=== PATIENT | female | born 1945 | race Caucasian/White ===

== ENCOUNTER 2022-09-21 10:02 | Outpatient (CLI) | payer MEDICARE, OTHER, SELFPAY | END 2022-09-21 10:03 | disposition home or self-care (01) | LOC: RAD 10:03 | PROVIDERS: PCP Family Medicine; Visit Provider Internal Medicine Cardiovascular Disease | DX: I48.91 Unspecified atrial fibrillation (principal); I51.7 Cardiomegaly; I34.0 Nonrheumatic mitral (valve) insufficiency; I07.1 Rheumatic tricuspid insufficiency | CPT/HCPCS: 93306 ==

== ENCOUNTER 2022-10-19 14:00 | Outpatient (RCR) | payer MEDICARE, OTHER, SELFPAY ==
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
== END 2023-04-25 23:59 | disposition home or self-care (01) ==
PROVIDERS: PCP Family Medicine; Visit Provider Physician Assistant Surgical
DX: S62.309D Unspecified fracture of unspecified metacarpal bone, subsequent encounter for fracture with routine healing (principal); Z51.89 Encounter for other specified aftercare
CPT/HCPCS: 97110; 97140; 97165; 97535; X5282

== ENCOUNTER 2023-10-31 14:30 | Outpatient (RCR) | payer MEDICARE, OTHER, SELFPAY | END 2024-02-17 09:56 | disposition home or self-care (01) | PROVIDERS: PCP Family Medicine; Visit Provider Family Medicine | DX: M53.3 Sacrococcygeal disorders, not elsewhere classified (principal); W19.XXXA Unspecified fall, initial encounter; R10.2 Pelvic and perineal pain; N39.46 Mixed incontinence; Z51.89 Encounter for other specified aftercare | CPT/HCPCS: 97110; 97112; 97162; 97535 ==

== ENCOUNTER 2024-11-04 21:41 | Emergency (ER) | payer MEDICARE, BC, SELFPAY ==
--- OUTSIDE RECORDS SUMMARY | 2024-11-04 21:44 | XMS_ITS | Encounter Summary ---
Author Organization [facility] Address [address] [place] [address] Care Team Providers Care Feedlot Manager Name Role Phone Unavailable Primary Care Provider Unavailabl e Encounter Details Date Type Department Care Team (Late st Contact Info) Description 09/24/2024 Documentation Department of Cardiovascular Surgery in [place], [place] [address] [place] [address] Jefferson Bowles M.D. [address] [place] [address] Social History Tobacco Use Types Packs/Day Years Used Date Smoking Tobacco: Former Cigarettes Smokeless Tobacco: Never Alcohol Use Standard Drinks/Week Comments Not Currently 0 (1 standard drink = 0.6 oz pure alcohol) previous drank red wine daily Dental Answer Date Recorded Dental: Regular Dentist Unknown 09/18/20 24 Comments Unknown Sex and Gender Information Value Date Recorded Sex Assigned at Not on file Legal Sex Female 1:40 PM BANK CLERK Gender Identity Not on file Sexual Orientation Not on file documented as of this encounter Progress Notes * Jefferson Bowles M.D. - 09/24/2024 6:28 PM CST Chart reviewed. Patient not seen. 79-year-old female with moderate to severe aortic insufficiency, moderate mitral regurgitation severe tricuspid regurgitation by surface echocardiogram. However by ANTONIO the aortic regurgitation is moderate. Tricuspid regurgitation is [id number]. The mitral valve disease is mild. The left ventricular ejection fraction is 50-55%. The left ventricular is not dilated. Apparently she has NYHA functional class 1 symptoms. In summary, Mrs. Banks has undetermined degree of valvular heart disease with minimal symptoms.She needs to be seen in the valve Clinic with a [place] echocardiogram. CLERK documented in this encounter Plan of Treatment Not on file documented as of this encounter Visit Diagnoses Not on filedocumented in this encounter
--- OUTSIDE RECORDS SUMMARY | 2024-11-04 21:44 | XMS_ITS | Encounter Summary ---
Author Organization [facility] Address [address] [place] [address] Care Team Providers Care Human Resource Intern Name Role Phone Unavailable Primary Care Provider Unavailabl e Encounter Details Date Type Department Care Team (Latest Contact Info) Description 09/22/2024 Clinical Communication Department of Cardiovascular Surgery in [place], [place] [address] [place] [address] Jefferson Bowles M.D. [address] [place] [address] Social History Tobacco Use Types Packs/Day Years [...] on file Legal Sex Female 1:40 PM PHONE ENGINEER Gender Identity Not on file Sexual Orientation Not on file documented as of this encounter Miscellaneous Notes * Telephone Encounter - Iesha Hobson - 09/22/2024 4:04 PM CST Jewel afternoon Dr. Bowles, The Patients images have been received and are available in Qreads. Please review at your earliest convenience. Thanks again! E ENGINEER documented in this encounter Plan of Treatment Not on file documented as of this encounter Visit Diagnoses Not on filedocumented in this encounter
--- OUTSIDE RECORDS SUMMARY | 2024-11-04 21:44 | XMS_ITS | Referral Summary ---
Author Organization [facility] Address [address] [place] [address]. 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 Immunizations Name Administration Dates Next Due Influenza (IIV3) PF 09/17/2008 Pneumo Conj 13-V (2010&after) 11/24/2018 Pneumococcal 23 valent 06/14/2011 TD,PF 7+ (Tenivac) 06/13/2004 Tdap (Adult) Unspecified Formulation 07/01/2012 Zoster vaccine, live 06/12/2011 Social History Tobacco Use Types Packs/Day Years Used Date Smoking Tobacco: Former Smokeless Tobacco: Never Tobacco Cessation:Counseling Given: Yes Alcohol Use Standard Drinks/Week Comments Yes 0 (1 standard drink = 0.6 oz pur e alcohol) 2 glasses of wine a week Adolescent Education Answer Date Record ed Getting School Help Needed Not on file 06/30 Comments No Sex and Gender Information Value Date Recorded Sex Assigned at Not on file Legal Sex Female 3:56 AM ELECTRICAL ACCESSORIES I ASSEMBLER Gender Identity Not on file Sexual Orientation Not on file Last Filed Vital Signs Vital Sign Reading Time Taken Comments Blood Pressure 107/68 06/01/2022 11:44 AM CDT Pulse 98 06/01/2022 11:44 AM CDT Temperature 36.4 C (97.6 F) 06/02/2019 11:42 AM CDT Respiratory Rate 16 06/02/2019 11:42 AM CDT Oxygen Saturation 99% 06/02/2019 11:42 AM CDT Inhaled Oxygen Concentration - - Weight 56.4 kg (124 lb 4.8 oz) 06/01/2022 11:44 AM CDT Height 171.5 cm (5' 7.5) 06/02/2019 11:42 AM CD T Body Mass Index 19.18 06/02/2019 11:42 AM CDT Plan of Treatment Not on file Procedures Procedure Name Priority Date/Time Associated Diagnosis Comments THYROID STIMULATING IMMUNOGLOBULIN Routine 05/26/2019 1:01 PM CDT 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 from Last 3 Months or Most Recently Relevant to Health Maintenance Results * Thyroid stimulating immunoglobulin (05/26/2019 1:01 PM CDT) Thyroid Stim Immunog <1.0 <=1.3 TSI index 06/03/2019 3:35 PM CDT [facility] Comment: (Note) Test Performed by: [facility] - [address] [address] Blood specimen (specimen) 05/26/2019 1:01 PM CDT 05/26/2019 1:02 PM CDT Cierra Bhandari MD LAB - BLOOD ORDERABLES Fi nal Result [facility] [address] [facility] [address] [place] [address] from Last 3 Months or Most Recently Relevant to Health Maintenance Insurance [facility] MEDICARE Care Teams Florist Relationship Specialty Start Date End Date No Ref-Primary, Physician PCP - General 08/24/19
--- OUTSIDE RECORDS SUMMARY | 2024-11-04 21:44 | XMS_ITS | Continuity of Care Document ---
Author Organization [facility] Address [address] [place] [address] Assessment Encounter Date Assessment Date Assessment LastModified by Organization Details LastModified Time 10/08/2024 10/08/2024 ASSESSMENT: Patient is a good candidate for conservative care and the prognosis is for a favorable outcome that achieves the patients' goals. We discussed etiology, activity modifications, home care, and other treatment options. Initially, it is recommended that the patient receive in-office treatment 1 times per week for 8 weeks at which time a re-evaluation will be performed to determine an appropriate change in plan. Initially, treatment will focus on joint manipulation to restore range of motion and reduce pain. We will slowly progress to therapeutic exercises and activities to improve function, strength, and stability may also be used as warranted. If the patient is not responding as expected, more invasive procedures will be discussed along with a referral. All considerations above were discussed with the patient and questions answered to satisfaction. If the patient should have any additional questions, or should the condition evolve or worsen, the patient should not hesitate to contact our office. [email or web address] Not available 10/08/2024 20:03:24 Plan of Treatment Reminders Order Date Submit Date Provider Last Modified By Organization Details Last Modified Time Details Appointments None record ed. Lab None record ed. Referral None record ed. Procedures None record ed. Surgeries None record ed. Imaging None record ed. Medication Orders None record ed. Patient TargetsNo targets recorded. Patient InstructionsNo instructions recorded. Reason for Referral None Reported. Problems Name Problem SNOMED Code Status Onset Date Resolution Date Notes Provider Name and Address Organization Details Recorded Time Lumbar segmental dysfunction 994503199 Active 2024 Musa Alvarez DC [address] [facility], [place], [address] , [facility] 5 20:03:24 Neck pain 62489651 Active 2024 Not Available [facility] 5 11:22:13 Thoracic segmental dysfunction 392076839 Active 2024 Musa Alvarez DC [address], [place], [address] , [facility] 5 20:03:24 Lesion of lumbar spine 934768761 Active 2024 Musa Alvarez DC [address] [facility], [place], [address] , [facility] 5 20:03:24 Cervical segmental dysfunction 888260809 Active 2024 Musa Alvarez DC [address], [place], [address] , [facility] 5 20:03:25 Problem Notes None recorded. Procedures Surgical History Date Name Laterality Status Provider Name and Address Organization Details Recorded Time 5 64452: Spinal manipulation , 3 to 4 regions completed Musa Alvarez DC [address], [place], [address], [facility] 10/14/2024 09:14:26 5 84297: New patient E/M completed Musa Alvarez DC [address] [facility] [address], [place], [address], [facility] 10/14/2024 09:14:26 5 19831: Spinal manipulation , 3 to 4 regions completed Musa Alvarez DC [address] [facility], [place], [address], [facility] 10/08/2024 20:03:32 5 89227: New patient E/M completed Musa Alvarez DC [address], [place], [address], [facility] 10/08/2024 20:03:40 Imaging Results None recorded. Procedure Notes None recorded. Medical Equipment None Reported. Medications Name Sig Start Date Stop Date Status Note LastModified by Organization Details LastModified Time cephalexin 500 mg capsule active Not Available Not Available N ot Available levofloxacin 500 mg tablet active Not Available Not Availabl e Not Available Vitals None Recorded Social History None recorded. Functional Status None recorded. Mental Status None recorded. Family History Nothing Reported. Medical History No medical history recorded. Gynecological HistoryNo gynecological history recorded. Obstetrics History GPAL:G 0 P 0 0 0 0 Past Encounters Encounter ID Performer Location Encounter Start Date Encounter Closed Date Diagnosis/Indication Diagnosis SNOMED-CT Code Diagnosis ICD10 Code Diagnosis Note [id number] Musa Alvarez DC [facility] [address] [place] [address] 10/08/2024 19:52:59 10/13/2024 11:20:32 Lesion of lumbar spine 934627028 M99.01 Neck pain 91816330 M54.2 Thoracic s egmental dysfunction 880865752 M99.02 Lumbar seg mental dysfunction 220025364 M99.03 Cervical s egmental dysfunction 941213815 M99.01 Health Concerns Section Related Observation LastModified by Organization Detai ls LastModified Time None Recorded Concern Status LastModified by Organization Details LastModified Time None Recorded Payers Encounter Date Sequence Insurance Name Policy Number Policy Velasquez Covered Member ID Velasquez Member ID Guarantor Name 10/08/2024 1 *SELF PAY* Karine Banks Notes Date Note Type Note Provider Name and Address Organization Details Recorded Time 10/08/2024 text/html HPI - Cervical SpineReported bypatient.Location: left Quality:aching Severity:moderate Duration:2 weeks Timing:gradual Alleviating Factors:ice Aggravating Factors:sitting Associated Symptoms:no numbness/tingling Musa Alvarez DC [address], [place], [address], [facility] 11/02/2024 10:32:59 10/12/2024 text/html HPI - Cervical SpineReported bypatient.Location: left Quality:aching Severity:moderate Duration:2 weeks Timing:gradual Alleviating Factors:ice Aggravating Factors:sitting Associated Symptoms:no numbness/tingling Musa Alvarez DC [address], [place], [address], [place] [facility] 10/14/2024 09:15:23 OBGyn Episode No OBEpisode recorded.
--- OUTSIDE RECORDS SUMMARY | 2024-11-04 21:44 | XMS_ITS | Encounter Summary ---
Author Organization [facility] Address [address] [place] [address] Care Team Providers Care Instrument And Control Technician Name Role Phone No Ref-Primary, Physician Primary Care Provider Ni Garcia MD Unavailable [phone] Encounter Details Date Type Department Care Team (Late st Contact Info) Description 03/26/[address] [place] [address] [place] [address] Social History Tobacco Use Types Packs/Day Years Used Date Smoking Tobacco: Former Smokeless Tobacco: Never Alcohol Use Standard Drinks/Week Comments Yes 0 (1 standard drink = 0.6 oz pur e alcohol) 2 glasses of wine a week Comments No Sex and Gender Information Value Date Recorded Sex Assigned at Not on file Legal Sex Female 3:56 AM CHIEF RADIOLOGY Gender Identity Not on file Sexual Orientation Not on file documented as of this encounter Plan of Treatment Not on file documented as of this encounter Visit Diagnoses Not on filedocumented in this encounter Care Teams Instrument And Control Technician Relationship Specialty Start Date End Date No Ref-Primary, Physician PCP - General 08/24/19 [place] [address] Assigned Endocrinology Provider 08/27/21 03/28/24 documented as of this encounter
--- OUTSIDE RECORDS SUMMARY | 2024-11-04 21:44 | XMS_ITS | Encounter Summary ---
Author Organization [facility] Address [address] [facility] [place] [address] Care Team Providers Care Administrative Hearing Officer Name Role Phone No Ref-Primary, Physician Primary Care Provider Ni Garcia MD Unavailable [phone] Reason for Visit * Reason Onset Date Comments Call Back 09/08/2021 Encounter Details Date Type Department Care Team (Late st Contact Info) Description 09/08/2021 Telephone [facility] Specialty [address] [place] [address] [place] [address] Call Back Social History Tobacco Use Types Packs/Day Years Used Date Smoking Tobacco: Former Smokeless Tobacco: Never Alcohol Use Standard Drinks/Week Comments Yes 0 (1 standard drink = 0.6 oz pur e alcohol) 2 glasses of wine a week Comments No Sex and Gender Information Value Date Recorded Sex Assigned at Not on file Legal Sex Female 3:56 AM TUNNEL INSPECTOR Gender Identity Not on file Sexual Orientation Not on file COVID-19 Exposure Response Date Recorded In the last month, have you been in contact with someone who was confirmed or suspected to have Coronavirus / COVID-19? Yes 08/25/2021 3:08 PM TUNNEL INSPECTOR documented as of this encounter Miscellaneous Notes * Telephone Encounter - Tamela Sawyer RN - 09/08/2021 3:45 PM TUNNEL INSPECTOR Do you have information that you received on this patient and information I can provide her with. EL INSPECTOR * Telephone Encounter - Vida Guzman - 09/08/2021 9:59 AM CST [facility] Call Center Phone Message May a detailed message be left on voicemail: yes Reason for Call: Other: . Per Patient states she had seen Dr. Garcia on 08/25/2021. Patient statesDr. Garcia wanted patient to provide her with the information on the supplements patient is taking. Patient states she did sent her the information via e-mail on 08/28/2021 or 08/29/2021 the following week after she was seen. Patient states she wanted Dr. Garcia to take a look at the test resultsfrom Dr. Lord and evaluate the results and to get back to patient. Patient states she has not heard anything from the clinic or Dr. Garcia and is wondering what is going on and if Dr. Garcia has received the information on the supplements and if Dr. Garcia has taken a look at patients test results from Dr. Lord. Patient would like a call back. Please advise. Patient is wanting to confirm the Email address of Dr. Garcia and wanting to make sure she has it correct. Patient is wanting to get a call back today, 09/08/2021 Action Taken: Message routed to: [facility] Endo Travel Screening: Not Applicable EL INSPECTOR EL INSPECTOR EL INSPECTOR documented in this encounter Plan of Treatment Not on file documented as of this encounter Visit Diagnoses Not on filedocumented in this encounter Care Teams Administrative Hearing Officer Relationship Specialty Start Date End Date No Ref-Primary, Physician PCP - General 08/24/19 [place] [address] Assigned Endocrinology Provider 08/27/21 03/28/24 documented as of this encounter
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
--- OUTSIDE RECORDS SUMMARY | 2024-11-04 21:44 | XMS_ITS | Encounter Summary ---
Author Organization [facility] Address [address] [facility] [place] [address] Care Team Providers Care School Psychologist Assistant Name Role Phone No Ref-Primary, Physician Primary Care Provider Ni Garcia MD Unavailable [phone] Reason for Visit * Reason Onset Date Comments Call Back 06/25/2022 Encounter Details Date Type Department Care Team (Late st Contact Info) Description 06/25/2022 [facility] Specialty [address] [place] [address] [place] [address] Call Back Social History Tobacco Use Types Packs/Day Years Used Date Smoking Tobacco: Former Smokeless Tobacco: Never Alcohol Use Standard Drinks/Week Comments Yes 0 (1 standard drink = 0.6 oz pur e alcohol) 2 glasses of wine a week Comments No Sex and Gender Information Value Date Recorded Sex Assigned at Not on file Legal Sex Female 3:56 AM TYRE FITTER Gender Identity Not on file Sexual Orientation Not on file COVID-19 Exposure Response Date Recorded In the last 10 days, have yo u been in contact with someone who was confirmed or suspected to have Coronavirus/COVID-19? No / Unsure 06/01/2022 11:34 AM CDT documented as of this encounter Miscellaneous Notes * Telephone Encounter - Karthik Barney - 06/25/2022 11:23 AM CDT [facility] Call Center Phone Message May a detailed message be left on voicemail: yes Reason for Call: Other: Pt stated she will be taking the lab test on Saturday and stated she has been feeling tired and thinks maybe it might have to do with her thyroid. Per pt as last discussed stated she is only doing it early because she does not feel well. Pt hoping for a call back results come through. Thank you Action Taken: Message routed to: Other: endo Travel Screening: Not Applicable documented in this encounter Plan of Treatment Not on file documented as of this encounter Visit Diagnoses Not on filedocumented in this encounter Care Teams School Psychologist Assistant Relationship Specialty Start Date End Date No Ref-Primary, Physician PCP - General 08/24/19 Ni Garcia [place] [address] Assigned Endocrinology Provider 08/27/21 03/28/24 documented as of this encounter
--- OUTSIDE RECORDS SUMMARY | 2024-11-04 21:44 | XMS_ITS | Clinical Summary ---
Author Organization [facility] Address [address] , [address] [place] [address] Phone Care Team Providers Care Lead Ramp Service Man Name Role Phone Manjeet LOVE, Ancelmo Monique [phone] Conditions or Problems Problem Name Problem Code Onset Date Status Entry Date Provider Comment Standard Description Annotate Visual field defect 83321544 (SNOMED CT) Active Ancelmo Burroughs MD Visual field defect Medications Medication Instructions Start Date Stop Date Generic Name NDC Provider LEVOTHYROXINE SODIUM 100 MCG TABS levothyroxine [id number] Ancelmo Burroughs MD TIROSINT 100 MCG CAPS levothyroxine [id number] Ancelmo Burroughs MD Medications Administered No information available. Allergies, Adverse Reactions, Alerts No information available. Results Date Name Value Unit Range Flag Description Lab Report: 06/27/21 - 2 ABSOLUTE MON 0.7 10*3/uL Monocyte s [#/volume] in Blood FRT4 1.51 FREE T4 ABS EOS 0.3 {Cells}/u L Eosinophils [#/volume] in Blood ABSOLUTE BAS completed 10*3/uL Basoph ils [#/volume] in Blood ABS LYMPHOCY 1.9 10*3/uL Absolute Lymphocytes ABS NEUTROPH 3.5 10*3/uL Neutroph ils [#/volume] in Blood T3 TOTAL 61 ng/mL Triiodothyro nine (T3) [Mass/volume] in Serum or Plasma % BASO AUTO 1.1 % basophils as percent of blood leukocytes, automated count % EOS AUTO 4.4 % Eosinophil s/100 leukocytes in Blood by Automated count MPV 8.4 fL Platelet mean volume [Entitic volume] in Blood by [facility] IRON SATUR % 28 % Iron sat uration [Mass Fraction] in Serum or Plasma MONOCYTE % 11.2 % Monocytes/ 100 leukocytes in Blood by Automated count TIBC 356 ug/dL Iron binding capacity [Mass/volume] in Serum or Plasma MCH 29.8 pg MCH [Entitic mass] by Automated count RDW 13.6 % Erythrocyte distribution width [Ratio] by Automated count MCHC 32.5 % MCHC [Mass/vo lume] by Automated count PMN % 53.9 % Neutrophils/1 00 leukocytes in Blood by Automated count MCV 91 fL MCV [Entitic volume] by Automated count IRON 98 ug/dL Iron [Mass/vo lume] in Serum or Plasma WBC 6.4 10*3/mm3 Leukocytes [#/volume] in Blood by Automated count RBC 3.96 10*6/mm3 Erythrocytes [#/volume] in Blood by Automated count PLATELETS 318 10*3/mm3 Platelets [#/volume] in Blood by Automated count HGB 12.0 g/dL Hemoglobin [Mass/volume] in Blood HCT 36.3 % Hematocrit [V olume Fraction] of Blood by Automated count TSH 4.59 u[iU]/mL Thyrotropin [Units/volume] in Serum or Plasma FERRITIN 16.0 ng/mL Ferritin [Mass/volume] in Serum or Plasma BG RANDOM mg/dL Glucose [Mass/volume] in Blood B-12 866 pg/mL Cobalamin (Vi tamin B12) [Mass/volume] in Serum or Plasma Office Visit: Office Visit H omonymous hemianopia, MRI Heart [facility] 01/2022 MEDS REVIEW Done Documenta tion of current medications (procedure) SMOK STATUS former smoker Tob acco smoking status Internal Other: Verbal Autho rization/Emergency Contact - OBS VERBAL_EMER DONE Verbal au thorization and emergency contact Internal Other: Authorizatio n - OBS [email or web address] Yes Authoriza tion: Release of Information - Authorize [facility] - Payment and Healthcare Operations ROIAUTHOTHER Yes Authoriz ation: Release of Information - Authorize Others/Insurance - Payment and Healthcare Operations HIECONSENT Yes Consent To Release information to the Health Information Exchange (HIE) [email or web address] Yes Authorizat ion: Authorization for [facility] to leave messages, voicemail, send text messages, send emails AUTHRELHCARE Yes Authoriz ation: Release/Retrieval of Information to/from Healthcare Facilities, Pharmacy Benefit Payers and Providers AUTHPRIVPRAC Yes Authoriz ation: Notice of privacy practices AUTHBENEFIT Yes Authoriza tion: Assignment of Benefits and Payment Agreement Plan of Care Type Date Detail Pending order Visual Evoked Po tentials Pending order Other Referral Pending order We will contact you with test results Pending order Obtain outside r ecords Procedures Code Procedure Name Date Entry Date ORDERS Visual Evoked Potentials 11/11/25 [id number] VISUAL EVOKED POTENTIAL (END) ORDERS We will contact you with test results 11/11/23 [facility]-[id number] Documentation of current medicatio ns Vital Signs Date Name Value Unit Description BMI (Body Mass Index) 21.54 kg/m2 Bod y Mass Index (Ratio) Height 67.24 [in_us] height E&M Weight Measured 62.73 kg weight in kilograms E&M Weight Measured 138 [lb_av] weight E& M BP Diastolic 68 mm[Hg] blood pressu re, diastolic BP Systolic 105 mm[Hg] blood pressur e, systolic Heart Rate 109 /min pulse rate Respiratory Rate 20 /min respirat ory rate E&M Immunizations No information available. Advance Directives No information available.
--- OUTSIDE RECORDS SUMMARY | 2024-11-04 21:44 | XMS_ITS | Clinical Summary ---
Author Organization [facility] Address [address] [place] [address]. [place] [address] Care Team Providers Care Physical Education Aide Name Role Phone No Ref-Primary, Physician Primary [...] on file Legal Sex Female 3:56 AM QUALITY IMPROVEMENT COORDINATOR Gender Identity Not on file Sexual Orientation [...] 06/02/2019 11:42 AM CDT Plan of Treatment Health Maintenance Due Date Last Done Comments ADVANCE CARE PLANNING 1945 ANNUAL REVIEW OF HM ORDERS 1945 DEXA 1945 FALL RISK ASSESSMENT 01/15/2008 RSV VACCINE (1 - 1-dose 75+ series) 2018 TSH W/FREE T4 REFLEX 05/26/2020 05/26/2019, 05/26/2019, 05/26/2019, Additional history exists MEDICARE ANNUAL WELLNESS VISIT 05/29/2022 05/29/2021 COVID-19 Vaccine ( season) 2024 06/14/2022, 01/11/2022, 07/02/2021, Additional history exists INFLUENZA VACCINE (#1) 2024 09/17/2008 PHQ-2 (once per calendar year) 2024 DTAP/TDAP/TD IMMUNIZATION (3 - Td or Tdap) 06/10/2030 06/10/2020, 07/01/2012, 07/01/2012, Additional history exists Pneumococcal Vaccine: 50+ Years Completed 11/24/2018, 06/14/2011 ZOSTER IMMUNIZATION Completed 02/19/2019, 12/06/2018, 06/12/2011 HPV IMMUNIZATION Aged Out No longer e ligible based on patient's age to complete this topic MENINGITIS IMMUNIZATION Aged Out No l onger eligible based on patient's age to complete this topic RSV MONOCLONAL ANTIBODY Aged Out No l onger eligible based on patient's age to complete this topic Procedures Procedure Name Priority Date/Time Associated Diagnosis Comments THYROID STIMULATING IMMUNOGLOBULIN Routine 05/26/2019 1:01 PM CDT 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 from Last 3 Months or Most Recently Relevant to Health Maintenance Results * Thyroid stimulating immunoglobulin (05/26/2019 1:01 PM CDT) Thyroid Stim Immunog <1.0 <=1.3 TSI index 06/03/2019 3:35 PM CDT [facility] Comment: (Note) Test Performed by: [address] [address] Blood specimen (specimen) 05/26/2019 1:01 PM CDT 05/26/2019 1:02 PM CDT Cierra Bhandari MD LAB - BLOOD ORDERABLES Fi nal Result [facility] [address] [facility] [place] [address] from Last 3 Months or Most Recently Relevant to Health Maintenance Insurance [employer] Care Teams Physical Education Aide Relationship Specialty Start Date End Date No Ref-Primary, Physician PCP - General 08/24/19
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
--- OUTSIDE RECORDS SUMMARY | 2024-11-04 21:45 | XMS_ITS | Encounter Summary ---
Author Organization [facility] Address [address] [place] [address] Care Team Providers Care Crew Caller Name Role Phone Elsewhere, Pcp Primary Care Provider Unavailabl e Reason for Visit * Reason Onset Date Comments Pre-visit Intake 10/29/2024 * Appointment Request (Routine) - Authorized Specialty Diagnoses / Procedures Referred By Jesse alexander Referred To Contact Cardiovascular Disease Zi Doty M.D. [address] [place] [address] Phone: tel: fax: Referral ID Status Reason Start Date Expiration Date V isits Requested Visits Authorized [id number] Authorized 10/01/2024 10/01/2025 1 1 Encounter Details Date Type Department Care Team (Latest Contact Info) Description 10/29/2024 12:15 PM LICENSED MENTAL HEALTH COUNSELOR Clinical Communication Virtual Review in [place], [place] [address] [place] [phone] Pre-visit Intake Social History Tobacco Use Types Packs/Day Years [...] on file Legal Sex Female 1:40 PM LICENSED MENTAL HEALTH COUNSELOR Gender Identity Not on file Sexual Orientation Not on file documented as of this encounter Plan of Treatment Not on file documented as of this encounter Visit Diagnoses Not on filedocumented in this encounter Care Teams Crew Caller Relationship Specialty Start Date End Date Elsewhere, Pcp PCP - General Internal Medicine 10/29/24 documented as of this encounter
--- OUTSIDE RECORDS SUMMARY | 2024-11-04 21:45 | XMS_ITS | Encounter Summary ---
Author Organization [facility] Address [address] [place] [address] Care Team Providers Care Abrading Machine Tender Name Role Phone Unavailable Primary Care Provider Unavailabl e Reason for Visit * Reason Onset Date Comments Referral Triage 09/28/2024 CVD Encounter Details Date Type Department Care Team (Latest Contact Info) Description 09/28/2024 Referral Triage Department of Cardiovascular Medicine in [place], [place] [address] [place] [address] Project ExecutiveReinaldo M.D. Referral Triage (CVD) Social History Tobacco Use Types Packs/Day Years [...] on file Legal Sex Female 1:40 PM SECTION BEAMER Gender Identity Not on file Sexual Orientation Not on file documented as of this encounter Plan of Treatment Not on file documented as of this encounter Visit Diagnoses Not on filedocumented in this encounter
--- OUTSIDE RECORDS SUMMARY | 2024-11-04 21:45 | XMS_ITS | Data Portability ---
Author Organization [place] [facility], [employer] [facility] Address [address] [place] [address] Assessment Encounter Date Assessment Date Assessment LastModified [...] should not hesitate to contact our office. Not available 10/08/2024 20:03:24 10/12/2024 10/12/2024 ASSESSMENT: Patient is a good candidate for [...] should not hesitate to contact our office. 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 Procedures Surgical History Date Name Laterality Status Provider Name and Address Organization Details Recorded Time 5 65971: Spinal manipulation , 3 to 4 regions completed [facility] Angel Alvarez [address], [place], [address], [facility] 10/14/2024 09:14:26 5 [address]305: New patient E/M completed Musa Alvarez [place] [address], [place], [address], [facility] 10/14/2024 09:14:26 5 08755: Spinal manipulation , 3 to 4 regions completed Musa Alvarez YANDEL [address] [place] [address], [place], [address], [facility] 10/08/2024 20:03:32 5 52492: New patient E/M completed Musa Alvarez [place] [address], [place], [address], [facility] 10/08/2024 20:03:40 Imaging Results None recorded. Procedure [...] SNOMED-CT Code Diagnosis ICD10 Code Diagnosis Note [id number] Musa Angel Alvarez DC [facility] [address] [place] [address] 10/08/2024 19:52:59 10/13/2024 11:20:32 Lesion of lumbar spine 648448005 M99.01 Neck pain 05838323 M54.2 Thoracic s egmental dysfunction 744461685 M99.02 Lumbar seg mental dysfunction 319461464 M99.03 Cervical s egmental dysfunction 818269172 M99.01 [id number] Musa Angel Alvarez DC [facility] [address] [place] [address] 10/12/2024 16:17:59 10/13/2024 11:21:02 Lesion of lumbar spine 998969676 M99.01 Neck pain 72395183 M54.2 Thoracic s egmental dysfunction 838023328 M99.02 Lumbar seg mental dysfunction 474770813 M99.03 Cervical s egmental dysfunction 851650400 M99.01 Health Concerns Section Related Observation LastModified by Organization Detai ls LastModified Time None Recorded Concern Status LastModified by Organization Details LastModified Time None Recorded Advance Directives Directive None Recorded Payers Encounter Date Sequence Insurance Name Policy Number Policy Velasquez Covered Member ID Velasquez Member ID Guarantor Name 10/08/2024 1 *SELF PAY* Kairne Banks 10/12/2024 2 [facility] [id number] Ariane Banks [id number] Ariane Banks Notes Date Note Type Note Provider Name and Address Organization Details Recorded Time 10/08/2024 text/html HPI - Cervical SpineReported bypatient.Location: left Quality:aching Severity:moderate Duration:2 weeks Timing:gradual Alleviating Factors:ice Aggravating Factors:sitting Associated Symptoms:no numbness/tingling Scot Angel Alvarez DC [address], [place], [address], [facility] 11/02/2024 10:32:59 10/12/2024 text/html HPI - Cervical SpineReported bypatient.Location: left Quality:aching Severity:moderate Duration:2 weeks Timing:gradual Alleviating Factors:ice Aggravating Factors:sitting Associated Symptoms:no numbness/tingling Scot Angel Alvarez DC [address], [place], [address], [facility] 10/14/2024 09:15:23 OBGyn Episode No OBEpisode recorded.
--- OUTSIDE RECORDS SUMMARY | 2024-11-04 21:45 | XMS_ITS | Encounter Summary ---
Author Organization [facility] Address [address] [place] [address] Care Team Providers Care Java Oracle Developer Name Role Phone Elsewhere, Pcp Primary Care Provider Unavailabl e Encounter Details Date Type Department Care Team (Latest Contact Info) Description 11/03/2024 Clinical Communication Department of Cardiovascular Medicine in [place], [place] [address] [place] [address] Geo Mcclain RCandidoN. 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 - 11/03/2024 11:14 AM MANAGER LATIN RN called pt on behalf of Dr Tomlin. Pt has not taken Eliquis since about 2019 when she took it a month surrounding cardioversion event. Says she is trying to mitigate stroke risk with lifestyle factors. RN educated patient on afib/stroke correlation and physiology of why her attempts to mitigate risk may not work in this situation. Pt understanding and eager to learn. Will relay to Dr Tomlin. GER LATIN documented in this encounter Plan of Treatment Not on file documented as of this encounter Visit Diagnoses Not on filedocumented in this encounter Care Teams Java Oracle Developer Relationship Specialty Start Date End Date Elsewhere, Pcp PCP - General Internal Medicine 10/29/24 documented as of this encounter
--- OUTSIDE RECORDS SUMMARY | 2024-11-04 21:45 | XMS_ITS | Encounter Summary ---
Author Organization [facility] Address [address] [place] [address] Care Team Providers Care Supervisor International Reservations Name Role Phone Elsewhere, Pcp Primary Care Provider Unavailabl e Reason for Visit * Reason Onset Date Comments Echo 11/0210/01/2024 Encounter Details Date Type Department Care Team (Latest Contact Info) Description 10/01/2024 Clinical Communication Department of Cardiovascular Medicine in [place], [place] [address] [place] [address] Zi Doty M.D. 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 (I.E. provider request, nursingrequest, etc.) Appt Type: NEW Saturday: Date: 11/02 Before 12:45 Evening? 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
--- OUTSIDE RECORDS SUMMARY | 2024-11-04 21:45 | XMS_ITS | Encounter Summary ---
Author Organization [facility] Address [address] [place] [id number] Care Team Providers Care Meter/Relay Technician Name Role Phone Elsewhere, Pcp Primary Care Provider Unavailabl e Reason for Referral * Specialty Diagnoses / Procedures Referred By Jesse alexander Referred To Contact Diagnoses Regurgitation Tricuspid Stenosis Mitral And Aortic [facility] Referral ID Status Reason Start Date Expiration Date Visits Re quested Visits Authorized O LAB SPECIALIST * Outpatient (Routine) - Closed Specialty Diagnoses / Procedures Referred By Contac t Referred To Contact Diagnoses Regurgitation Tricuspid Stenosis Mitral And Aortic Regurgitation Procedures ECG 12 Lead Osiel Tomlin M.D., M.P.H. [address] [place] [phone] Phone: tel: fax: [facility] Referral ID Status Reason Start Date Expiration Date Visits Re quested Visits Authorized [id number] Closed 10/01/2024 10/01/2025 1 1 O LAB SPECIALIST * Cardiovascular-Diagnostic (Routine) - Closed Specialty Diagnoses / Procedures Referred By Contac t Referred To Contact Diagnoses Regurgitation Tricuspid Stenosis Mitral And Aortic Regurgitation Procedures Echo Transthoracic (TTE) Osiel Tomlin M.D., M.P.H. [address] [place] [phone] Phone: tel: fax: [facility] Referral ID Status Reason Start Date Expiration Date Visits Re quested Visits Authorized [id number] Closed 10/01/2024 10/01/2025 1 1 O LAB SPECIALIST * Outpatient (Routine) - Closed Specialty Diagnoses / Procedures Referred By Jesse alexander Referred To Contact Diagnoses Regurgitation Tricuspid Stenosis Mitral And Aortic Regurgitation Procedures DX Chest AP or PA and Lateral 2 Views Osiel Tomlin M.D., M.P.H. [address] [place] [address] Phone: tel: fax: [facility] Referral ID Status Reason Start Date Expiration Date Visits Re quested Visits Authorized [id number] Closed 10/01/2024 10/01/2025 1 1 O LAB SPECIALIST Encounter Details Date Type Department Care Team (Latest Contact Info) Description 10/01/2024 Orders Only Department of Cardiovascular Medicine in [place], [place] [address] [place] [address] [facility], ProviderMD Regurgitation Tricuspid; Stenosis Mitral And Aortic Regurgitation Social History Tobacco Use Types Packs/Day Years Used Date Smoking Tobacco: Former Cigarettes Smokeless Tobacco: Never Alcohol Use Standard Drinks/Week Comments Not Currently 0 (1 standard drink = 0.6 oz pure alcohol) previous drank red wine daily Dental Answer Date Recorded Dental: Regular Dentist Unknown 09/18/20 Comments Unknown Sex and Gender Information Value Date Recorded Sex Assigned at Not on file Legal Sex Female 1:40 PM PHOTO LAB SPECIALIST Gender Identity Not on file Sexual Orientation Not on file documented as of this encounter Plan of Treatment Scheduled Orders Name Type Priority Associated Diagnoses Orde r Schedule Creatinine with Estimated GFR Lab Routine Regurgitation Tricuspid Stenosis Mitral And Aortic Regurgitation Expected: 10/01/2024, Expires: 12/30/2025 Scheduled Referrals Name Type Priority Associated Diagnoses Orde r Schedule Patient Education - Heart valve class education visit (clinic) Outpatient Referral Routine Regurgitation Tricuspid Stenosis Mitral And Aortic Regurgitation Expected: 10/01/2024, Expires: 12/30/2025 documented as of this encounter Results * (TTE) 2D ECHO DOPPLER COLOR (11/02/2024 11:44 AM PHOTO LAB SPECIALIST) Ejection Fraction 52 MC CV EIMS Mid-Ascending Aorta 42 MC CV EIMS LV Mass Index 78 MC CV EIMS LV End-Diastolic Diameter 44 MC CV EIMS LV End-Systolic Diameter 32 MC CV EIMS LV End-Diastolic Volume 100 MC CV EIMS LV End-Systolic Volume 48 MC CV EIMS MV E Velocity 0.7 MC CV EIMS Left ventricular stroke volume index 38 MC CV EIMS Cardiac Output 5.49 MC CV EIMS Cardiac Index 3.35 MC CV EIMS LV Interventricular Septal Wall Thickness 8 MC CV EIMS LV Posterior Wall Thickness 10 MC CV EIMS LV Relative Wall Thickness 45 MC CV EIMS RV 4-Chamber Basal Diameter 41 MC CV EIMS RV 4-Chamber Mid Diameter 29 MC CV EIMS RV 4-Chamber Length 60 MC CV EIMS TAPSE 18 MC CV EIMS Tricuspid Annular S 0.12 MC CV EIMS TR Vmax 2.17 MC CV EIMS RA Pressure 5 MC CV EIMS RV Systolic Pressure 24 MC CV EIMS AV mean gradient 5 MC CV EIMS Aortic valve area 2.15 MC CV EIMS Aortic Valve Dimensionless Index 0.62 MC CV EIMS AV regurgitant volume 49 MC CV EIMS MV regurgitant volume 16 MC CV EIMS LA Volume Index 38 MC CV EIMS Aortic Valve Systolic Peak Velocity 1.4 MC CV EIMS Anatomical Region Laterality Modality Echocardiography 11/02/2024 10:4 0 AM PHOTO LAB SPECIALIST Impressions 11/02/2024 12:46 PM PHOTO LAB SPECIALIST LEFT VENTRICLE:Normal left ventricular chamber size. Abnormal left ventricular geometry with concentric remodeling (increased wall thickness to cavity ratio). Calculated 2-D biplane volumetric left ventricular ejection fraction of 52%. Left ventricular stroke volume index 38 ml/m2. Left ventricular cardiac index 3.35 l/min/m2. No regional wall motion abnormalities. Indeterminate left ventricular filling pressure. RIGHT VENTRICLE:Normal right ventricular chamber size. Normal right ventricular systolic function. Estimated right ventricular systolic pressure 24 mmHg (right atrial pressure of 5 mmHg). ATRIA:Mild-moderately enlarged left atrial size. Left atrial volume index 38 ml/m2. Mild-moderately enlarged right atrial size. CARDIAC VALVES:Trileaflet aortic valve. Thickened aortic valve. Moderate aortic valve regurgitation. Aortic regurgitant volume (PISA) 49 ml. Aortic regurgitation ERO (PISA) 0.24 cm2. Thickened mitral valve. Mild mitral valve regurgitation. Pulmonary valve not well visualized. Normal pulmonary valve systolic velocities. Trivial pulmonary valve regurgitation. Normal tricuspid valve. Mild-moderate tricuspid valve regurgitation (multiple jets). OTHER ECHO FINDINGS:Normal inferior vena cava size with normal inspiratory collapse (>50%). Mildly enlarged mid ascending aorta diameter of 42 mm. Upper limit of normal of the mid ascending aorta, for age, sex and BSA is 39 mm. No abdominal aortic aneurysm. Normal abdominal aorta Doppler flow pattern. No atrial level shunt by color flow imaging. No intracardiac mass or thrombus, but the left atrial appendage cannot be visualized adequately with transthoracic echo to exclude thrombus in this location. No pericardial effusion. For the complete report, see the Order-Level Documents. Narrative 11/02/2024 12:46 PM PHOTO LAB SPECIALIST For the complete report, see the Order-Level Documents. Hemodynamics Heart Rate: 90 BPM Blood Pressure: 126 / 78 mmHg ECG: Atrial fibrillation with ectopics Final Impressions 1. Moderate aortic valve regurgitation, ERO (PISA) 0.24 cm2, regurgitant volume (PISA) 49 ml , vena contracta width 3 mm. 2. Mildly enlarged mid [...] inspiratory collapse (>50%). 9. No pericardial effusion. 10. In the absence of a change in clinical status, consensus guidelines recommend a repeat transthoracic echocardiogram in 1-2 years to reevaluate the aortic regurgitation. Procedure Note Rowan Ho M.D., Pharm.D. - 11/02/2024 For the complete report, see the Order-Level Documents. Hemodynamics Heart Rate: 90 BPM Blood Pressure: 126 / 78 mmHg ECG: Atrial fibrillation with ectopics Final Impressions 1. Moderate aortic valve regurgitation, ERO (PISA) 0.24 cm2, regurgitantvolume (PISA) 49 ml , vena contracta width 3 mm. 2. Mildly enlarged mid ascending aorta diameter of 42 mm, upper limit ofnormal for age, sex and BSA is 39 mm. 3. Normal left ventricular chamber size (end systolic diameter 3.2 cm), noregional wall motion abnormalities, calculated 2-D biplane volumetricejection fraction of 52%. 4. Abnormal left ventricular geometry with concentric remodeling(increased wall thickness to cavity ratio), indeterminate fillingpressure. 5. Mild mitral valve regurgitation. 6. Normal right ventricular chamber size, normal systolic function,estimated right ventricular systolic pressure 24 mmHg (right atrialpressure of 5 mmHg). 7. Mild-moderate tricuspid valve regurgitation (respiratory variation). 8. Normal inferior vena cava size with normal inspiratory collapse(>50%). 9. No pericardial effusion. 10. In the absence of a change in clinical status, consensus guidelinesrecommend a repeat transthoracic echocardiogram in 1-2 years to reevaluatethe aortic regurgitation. Findings LEFT VENTRICLE:Normal left ventricular chamber size. Abnormal leftventricular geometry with concentric remodeling (increased wall thicknessto cavity ratio). Calculated 2-D biplane volumetric left ventricularejection fraction of 52%. Left ventricular stroke volume index 38 ml/m2.Left ventricular cardiac index 3.35 l/min/m2. No regional wall motionabnormalities. Indeterminate left ventricular filling pressure. RIGHT VENTRICLE:Normal right ventricular chamber size. Normal rightventricular systolic function. Estimated right ventricular systolicpressure 24 mmHg (right atrial pressure of 5 mmHg). ATRIA:Mild-moderately enlarged left atrial size. Left atrial volume index38 ml/m2. Mild-moderately enlarged right atrial size. CARDIAC VALVES:Trileaflet aortic valve. Thickened aortic valve. Moderateaortic valve regurgitation. Aortic regurgitant volume (PISA) 49 ml. Aorticregurgitation ERO (PISA) 0.24 cm2. Thickened mitral valve. Mild mitralvalve regurgitation. Pulmonary valve not well visualized. Normal pulmonaryvalve systolic velocities. Trivial pulmonary valve regurgitation. Normaltricuspid valve. Mild-moderate tricuspid valve regurgitation (multiplejets). OTHER ECHO FINDINGS:Normal inferior vena cava size with normal inspiratorycollapse (>50%). Mildly enlarged mid ascending aorta diameter of 42 mm.Upper limit of normal of the mid ascending aorta, for age, sex and BSA is39 mm. No abdominal aortic aneurysm. Normal abdominal aorta Doppler flowpattern. No atrial level shunt by color flow imaging. No intracardiac massor thrombus, but the left atrial appendage cannot be visualized adequatelywith transthoracic echo to exclude thrombus in this location. Nopericardial effusion. For the complete report, see the Order-Level Documents. Osiel Tomlin M.D., M.P.H. CV ECHO PROCEDURES Final Result * ECG 12 Lead (11/02/2024 8:52 AM PHOTO LAB SPECIALIST) Ventricular Rate ECG/Min 77 BPM MUSE QRSD Interval 84 ms MUSE QT Interval 396 ms MUSE QTC Interval 448 ms MUSE R Silvis 57 degrees MUSE T Wave Silvis 2 degrees MUSE 11/02/2024 8:52 AM PHOTO LAB SPECIALIST 11/02/2024 8:54 AM PHOTO LAB SPECIALIST Impressions MUSE - 11/02/2024 8:54 AM PHOTO LAB SPECIALIST Atrial fibrillation Low anterior forces Nonspecific ST and T wave abnormality No previous ECGs available Reviewed by NARGIS Clements Narrative Procedure Note Trenton Murphy Jr., M.D. - 11/02/2024 IMPRESSION: Atrial fibrillation Low anterior forces Nonspecific ST and T wave abnormality No previous ECGs available Reviewed by NARGIS Clements Osiel Tomlin M.D., M.P.H. ECG ORDERABLES Fi nal Result MUSE NA * DX Chest AP or PA and Lateral 2 Views (11/02/2024 8:26 AM PHOTO LAB SPECIALIST) Anatomical Region Laterality Modality Chest, Thoracic RST LOS, Tho racic ARZ LOS, Thoracic FLA LOS N/A Digital Radiography Impressions 11/02/2024 8:43 AM PHOTO LAB SPECIALIST Mild bibasilar atelectasis/scarring. Mild hyperinflation. Left nipple shadow. Mild focal eventration left hemidiaphragm. Cardiac silhouette at the upper limits of normal for size. Fat pad cardiac apex. Aortic calcification. Mild degenerative changes thoracic spine. Several osseous bodies about the right shoulder. Abdominal surgical clips. Narrative 11/02/2024 8:43 AM PHOTO LAB SPECIALIST EXAM: DX CHEST AP OR PA AND LATERAL 2 VIEWS Procedure Note Juan C Frausto M.D. - 11/02/2024 EXAM: DX CHEST AP OR PA AND LATERAL 2 VIEWS IMPRESSION: Mild bibasilar atelectasis/scarring. Mild hyperinflation. Left nippleshadow. Mild focal eventration left hemidiaphragm. Cardiac silhouette atthe upper limits of normal for size. Fat pad cardiac apex. Aorticcalcification. Mild degenerative changes thoracic spine. Several osseous bodies about the right shoulder.Abdominal surgical clips. Osiel Tomlin M.D., M.P.H. IMG DIAGNOSTIC SONU GING PROCEDURES Final Result * Prothrombin Time (PT) (11/02/2024 8:06 AM PHOTO LAB SPECIALIST) Pathologist [facility] Prothrombin Time, P 10.0 9.4 - 12.5 sec 11/02/2024 9:03 AM PHOTO LAB SPECIALIST DTL INR 0.9 0.9 - 1.1 11/02/2024 9:03 AM PHOTO LAB SPECIALIST DTL Comment: ----ADDITIONAL INFORMATION---- Standard intensity warfarin therapeutic range: 2.0 to 3.0 High intensity warfarin therapeutic range: 2.5 to 3.5 Blood (Blood, Venous) 11/02/2024 8:06 AM PHOTO LAB SPECIALIST 11/02/2024 8:33 AM PHOTO LAB SPECIALIST Osiel Tomlin M.D., M.P.H. LAB BLOOD ADD-ON F inal Result [facility] [address] [place] [address], [facility] DTL [facility] [address] [place] [address] * CBC with Differential, Blood (11/02/2024 8:06 AM PHOTO LAB SPECIALIST) Pathologist [facility] Hemoglobin 15.0 11.6 - 15.0 g/dL 11/02/2024 8:59 AM PHOTO LAB SPECIALIST DTL Hematocrit 43.1 35.5 - 44.9 % 11/02/2024 8:59 AM PHOTO LAB SPECIALIST DTL Erythrocytes 4.48 3.92 - 5.13 x10(12)/L 11/02/2024 8:59 AM PHOTO LAB SPECIALIST DTL MCV 96.2 78.2 - 97.9 fL 11/02/2024 8:59 AM PHOTO LAB SPECIALIST DTL RBC Distrib Width 13.2 12.2 - 16.1 % 11/02/2024 8:59 AM PHOTO LAB SPECIALIST DTL Platelet Count 291 157 - 371 x10(9)/L 11/02/2024 8:59 AM PHOTO LAB SPECIALIST DTL Leukocytes 5.9 3.4 - 9.6 x10(9)/L 11/02/2024 8:59 AM PHOTO LAB SPECIALIST DTL Neutrophils 2.61 1.56 - 6.45 x10(9)/L 11/02/2024 8:59 AM PHOTO LAB SPECIALIST [facility] Lymphocytes 2.40 0.95 - 3.07 x10(9)/L 11/02/2024 8:59 AM PHOTO LAB SPECIALIST DTL Monocytes 0.56 0.26 - 0.81 x10(9)/L 11/02/2024 8:59 AM PHOTO LAB SPECIALIST DTL Eosinophils 0.21 0.03 - 0.48 x10(9)/L 11/02/2024 8:59 AM PHOTO LAB SPECIALIST DTL Basophils 0.07 0.01 - 0.08 x10(9)/L 11/02/2024 8:59 AM PHOTO LAB SPECIALIST DTL Blood (Blood, Venous) 11/02/2024 8:06 AM PHOTO LAB SPECIALIST 11/02/2024 8:33 AM PHOTO LAB SPECIALIST us Osiel Tomlin M.D., M.P.H. LAB BLOOD ADD-ON F inal Result [facility] [address] [place] [address], [facility] DTL [facility] [address] [place] [address] DHPM [facility] [address] [place] [address] * (ABNORMAL) NT-Pro B-Type Natriuretic Peptide (BNP) (11/02/2024 8:06 AM PHOTO LAB SPECIALIST) Pathologist [facility] NT-Pro BNP 1118(H) <=540 pg/mL 11/02/2024 9:18 AM PHOTO LAB SPECIALIST DTL Comment: NT-proBNP values less than 300 pg/mL have a 99% negative predictive value for excluding acute congestive heart failure. A cutoff of 1200 pg/mL for patients with an eGFR<60 yields a diagnostic sensitivity and specificity of 89% and 72% for acute congestive heart failure. A diagnostic NT-proBNP cutoff of 1800 pg/mL has been suggested in adults over 75 years of age in the absence of renal failure. Blood (Blood, Venous) 11/02/2024 8:06 AM PHOTO LAB SPECIALIST 11/02/2024 8:53 AM PHOTO LAB SPECIALIST Osiel Tomlin M.D., M.P.H. LAB BLOOD ADD-ON F inal Result Performing Organization Address City/[facility]/ZIP Co de Phone Number [facility] [address] [place] [address], [facility] DTL [facility] [address] [place] [address] * Glucose, Fasting (11/02/2024 8:06 AM PHOTO LAB SPECIALIST) Pathologist [facility] Glucose, P 97 70 - 100 mg/dL 11/02/2024 9:09 AM PHOTO LAB SPECIALIST DTL Last Intake 13 hr 11/02/2024 8:53 AM PHOTO LAB SPECIALIST DTL Blood (Blood, Venous) 11/02/2024 8:06 AM PHOTO LAB SPECIALIST 11/02/2024 8:53 AM PHOTO LAB SPECIALIST Osiel Tomlin M.D., M.P.H. LAB BLOOD NON ADD- ON Final Result [facility] [address] [place] [address], [facility] DTL [facility] [address] [place] [address] * Albumin (11/02/2024 8:06 AM PHOTO LAB SPECIALIST) Albumin, S 4.3 3.5 - 5.0 g/dL 11/02/2024 9:18 AM PHOTO LAB SPECIALIST DTL Blood (Blood, Venous) 11/02/2024 8:06 AM PHOTO LAB SPECIALIST 11/02/2024 8:53 AM PHOTO LAB SPECIALIST Osiel Tomlin M.D., M.P.H. LAB BLOOD ADD-ON F inal Result [facility] [address] [place] [address], [facility] [address] [place] [address] * (ABNORMAL) Lipid Panel (11/02/2024 8:06 AM PHOTO LAB SPECIALIST) Triglycerides 64 mg/dL 11/02/2024 9:18 AM PHOTO LAB SPECIALIST DTL Comment: ----REFERENCE VALUE---- Normal: <150 mg/dL Borderline High: 150-199 mg/dL High: 200-499 mg/dL Very High: > or =500 mg/dL Cholesterol, Total 244(H) mg/dL 2024 9:18 AM PHOTO LAB SPECIALIST DTL Comment: ----REFERENCE VALUE---- Desirable: < 200 mg/dL Borderline High: 200 - 239 mg/dL High: > or = 240 mg/dL Cholesterol, LDL, Calculated 121 mg/dL 11/02/2024 9:18 AM PHOTO LAB SPECIALIST DTL Comment: ----REFERENCE VALUE---- Desirable: <100 mg/dL Above Desirable: 100-129 mg/dL Borderline High: 130-159 mg/dL High: 160-189 mg/dL Very High: >=190 mg/dL ----ADDITIONAL INFORMATION---- LDL cholesterol calculated using the Santana/NIH equation. Cholesterol, HDL, S 112 >=50 mg/dL 11/02/2024 9:18 AM PHOTO LAB SPECIALIST DTL Cholesterol, Non-HDL, Calculated 132 mg/dL 11/02/2024 9:18 AM PHOTO LAB SPECIALIST DTL Comment: ----REFERENCE VALUE---- Desirable: <130 mg/dL Above Desirable: 130-159 mg/dL Borderline High: 160-189 mg/dL High: 190-219 mg/dL Very High: > or =220 mg/dL Fasting (8 HR or more) Yes 11/02/2024 8:06 AM PHOTO LAB SPECIALIST DTL Blood (Blood, Venous) 11/02/2024 8:06 AM PHOTO LAB SPECIALIST 11/02/2024 8:53 AM PHOTO LAB SPECIALIST Osiel Tomlin M.D., M.P.H. LAB BLOOD ADD-ON F inal Result Performing Organization Address [facility] de Phone Number [facility] [address] [place] [address] * Sodium (11/02/2024 8:06 AM PHOTO LAB SPECIALIST) Sodium, S 139 135 - 145 mmol/L 11/02/2024 9:18 AM PHOTO LAB SPECIALIST DTL Blood (Blood, Venous) 11/02/2024 8:06 AM PHOTO LAB SPECIALIST 11/02/2024 8:53 AM PHOTO LAB SPECIALIST Osiel Tomlin M.D., M.P.H. LAB BLOOD ADD-ON F inal Result Performing Organization Address [facility] Co de Phone Number [facility] [address] [place] [address] * Potassium (11/02/2024 8:06 AM PHOTO LAB SPECIALIST) Potassium, S 3.7 3.6 - 5.2 mmol/L 11/02/2024 9:18 AM PHOTO LAB SPECIALIST DTL Blood (Blood, Venous) 11/02/2024 8:06 AM PHOTO LAB SPECIALIST 11/02/2024 8:53 AM PHOTO LAB SPECIALIST us Osiel Tomlin M.D., M.P.H. LAB BLOOD ADD-ON F inal Result [facility] [address] [place] [address], [place] DTL [facility] [address] [place] [address] documented in this encounter Visit Diagnoses Diagnosis Regurgitation Tricuspid Stenosis Mitral And Aortic Regurgitation Regurgitation Tricuspid Stenosis Mitral And Aortic Regurgitation Regurgitation Tricuspid Stenosis Mitral And Aortic Regurgitation documented in this encounter Care Teams Meter/Relay Technician Relationship Specialty Start Date End Date Elsewhere, Pcp PCP - General Internal Medicine 10/29/24 documented as of this encounter
--- OUTSIDE RECORDS SUMMARY | 2024-11-04 21:45 | XMS_ITS | Clinical Summary ---
Author Organization [facility] Address [address] [place] [address] Care Team Providers Care Overweaver Name Role Phone Unassigned, Provider Primary Care Provider Unava ilable Source Comments You are receiving this document as you are listed as the primary care provider,follow-up provider, or the patient has been referred to you for consultation.This is in compliance with the Medicare andMedicaid EHR Incentive Program,which states Providers who transition their patient to another setting of careor provider of care or refers their patient to another provider of care shouldprovide summary care record for each transition of care or referral. [facility] Allerg[facility] Active Allergy Reactions Criticality Noted Date Comments Gluten Meal Other, see comments 09/13/2016 Fatigue Fatigue Inhaled Anticholinergic Agents Other, see comments 09/13/2016 fatigue fatigue Tilactase Other, see comments 09/13/2016 Fatigue Fatigue Medications Medication Sig Dispensed Refills Start Date End Date Status levothyroxine 100 MCG Take 100 mcg by mouth. 02/21/2022 Active ascorbic acid (AKA VITAMIN C) 1000 MG tablet Take 1,000 mg by mouth. 04/11/2022 Active Cholecalciferol 250 MCG (23090 UT) Take by mouth. 04/11/2022 Active Coenzyme Q10 100 MG Take 300 mg by mouth. 01/18/2022 Active Social History Tobacco Use Types Packs/Day Years Used Date Smoking Tobacco: Never Assessed Sex and Gender Information Value Date Recorded Sex Assigned at Not on file Gender Identity Not on file Sexual Orientation Not on file Plan of Treatment Health Maintenance Due Date Last Done Comments [place]il[place] 01/15/2008 RSV (1 - 1-dose 75+ series) 2018 Medicare Annual Wellness Visit 05/29/2022 05/29/2021 COVID-19 Vaccine ( season) 2024 01/11/2022, 07/02/2021, 12/14/2020, Additional history exists Influenza (#1) 2024 09/17/2008 DTaP/Tdap/Td (3 - Tdap) 06/10/2030 06/10/20 20, 07/01/2012, 06/13/2004, Additional history exists Pneumococcal 65+ Yrs Completed 11/24/2018, 06/12/20 11 Zoster/Shingles Completed 02/19/2019, 11/2018, 06/12/2011 HepA Aged Out No longer eligi ble based on patient's age to complete this topic HepB Aged Out No longer eligi ble based on patient's age to complete this topic Hib Aged Out No longer eligi ble based on patient's age to complete this topic IPV (Polio) Aged Out No longer eligi ble based on patient's age to complete this topic MCV4 Aged Out No longer eligi ble based on patient's age to complete this topic Care Teams Overweaver Relationship Specialty Start Date End Date Unassigned, Provider [address] [place] [id number] PCP - General 12/08/00
--- OUTSIDE RECORDS SUMMARY | 2024-11-04 21:45 | XMS_ITS | Continuity of Care Document ---
Author Organization [facility] Address [address] [facility] [address] [place] [address] Assessment Encounter Date Assessment Date Assessment LastModified by Organization Details LastModified Time 10/12/2024 10/12/2024 ASSESSMENT: Patient is a good [...] to contact our office. [email or web address] Not available 10/14/2024 09:14:27 Plan of Treatment [...] Organization Details Recorded Time Lumbar segmental dysfunction 706948977 Active 2024 Musa Alvarez DC [address] [facility], [place], [address] , [facility] 5 20:03:24 Neck pain 33305228 Active 2024 Not Available [facility] 5 11:22:13 Thoracic segmental dysfunction 920975318 Active 2024 Musa Alvarez DC [address] [facility], [place], [address] , [facility] 5 20:03:24 Lesion of lumbar spine 175908791 Active 2024 Musa Alvarez DC [address], [place], [address] , [facility] 5 20:03:24 Cervical segmental dysfunction 020616017 Active 2024 Musa Alvarez DC [address] [facility], [place], [address] , [facility] 5 20:03:25 Problem Notes None recorded. Procedures Surgical History Date Name Laterality Status Provider Name and Address Organization Details Recorded Time 5 82002: Spinal manipulation , 3 to 4 regions completed Musa Alvarez DC [address] [facility], [place], [address], [facility] 10/14/2024 09:14:26 5 03485: New patient E/M completed Musa Alvarez DC [address] [facility], [place], [address], [facility] 10/14/2024 09:14:26 5 58476: Spinal manipulation , 3 to 4 regions completed Musa Alvarez DC [address] [facility], [place], [address], [facility] 10/08/2024 20:03:32 5 93841: New patient E/M completed Musa Alvarez DC [address] [facility], [place], [address], [facility] 10/08/2024 20:03:40 Imaging Results None recorded. Procedure [...] SNOMED-CT Code Diagnosis ICD10 Code Diagnosis Note [id number] Musa Angel Alvarez DC [facility] [address] [facility] [place] [address] 10/08/2024 19:52:59 10/13/2024 11:20:32 Lesion of lumbar spine 901019236 M99.01 Neck pain 48718220 M54.2 Thoracic s egmental dysfunction 772784456 M99.02 Lumbar seg mental dysfunction 153140752 M99.03 Cervical s egmental dysfunction 420390845 M99.01 [id number] Musa Angel Alvarez DC [facility] [address] [place] [address] 10/12/2024 16:17:59 10/13/2024 11:21:02 Lesion of lumbar spine 086600473 M99.01 Neck pain 50426148 M54.2 Thoracic s egmental dysfunction 719875238 M99.02 Lumbar seg mental dysfunction 154365292 M99.03 Cervical s egmental dysfunction 699686843 M99.01 Health Concerns Section Related Observation LastModified by Organization Detai ls LastModified Time None Recorded Concern Status LastModified by Organization Details LastModified Time None Recorded Payers Encounter Date Sequence Insurance Name Policy Number Policy Velasquez Covered Member ID Velasquez Member ID Guarantor Name 10/12/2024 2 [id number] Ariane Banks [id number] Ariane Banks Notes Date Note Type Note Provider Name and Address Organization Details Recorded Time 10/12/2024 text/html HPI - Cervical SpineReported bypatient.Location: left Quality:aching Severity:moderate Duration:2 weeks Timing:gradual Alleviating Factors:ice Aggravating Factors:sitting Associated Symptoms:no numbness/tingling Scot Angel Alvarez DC [address] [facility], [place], [address], [facility] 10/14/2024 09:15:23 OBGyn Episode No OBEpisode recorded.
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
--- OUTSIDE RECORDS SUMMARY | 2024-11-04 21:46 | XMS_ITS | Encounter Summary ---
Author Organization [facility] Address [address] [place] [address] Care Team Providers Care Seal Extrusion Operator Name Role Phone Elsewhere, Pcp Primary Care Provider Unavailabl e Reason for Referral * Cardiovascular-Diagnostic (Routine) - Closed Specialty Diagnoses / Procedures Referred By Jesse alexander Referred To Contact Diagnoses Regurgitation Tricuspid Stenosis Mitral And Aortic Regurgitation Procedures Echo Transthoracic (TTE) Osiel Tomlin M.D., M.P.H. [address] [place] [phone] Phone: tel: fax: [facility] Referral ID Status Reason Start Date Expiration Date Visits Re quested Visits Authorized [id number] Closed 10/01/2024 10/01/2025 1 1 LINE MAINTENANCE SUPERVISOR Reason for Visit * Cardiovascular-Diagnostic (Routine) - Closed Specialty Diagnoses / Procedures Referred By Jesse alexander Referred To Contact Diagnoses Regurgitation Tricuspid Stenosis Mitral And Aortic Regurgitation Procedures Echo Transthoracic (TTE) Osiel Tomlin M.D., M.P.H. [address] [place] [phone] Phone: tel: fax: [facility] Referral ID Status Reason Start Date Expiration Date Visits Re quested Visits Authorized [id number] Closed 10/01/2024 10/01/2025 1 1 Encounter Details Date Type Department Care Team (Latest Contact Info) Description 11/02/2024 10:31 AM PIPELINE MAINTENANCE SUPERVISOR - 11/02/2024 11:59 PM PIPELINE MAINTENANCE SUPERVISOR Hospital Encounter Department of Cardiovascular Diseases in [place], [place] [address] [place] [address] Osiel Tomlin M.D., M.P.H. [address] [place] [address] Regurgitation Tricuspid; Stenosis Mitral And Aortic Regurgitation Discharge Disposition: Home or Self Care Social History Tobacco Use Types Packs/Day Years [...] on file Legal Sex Female 1:40 PM PIPELINE MAINTENANCE SUPERVISOR Gender Identity Not on file Sexual Orientation Not on file documented as of this encounter Medications at Time of Discharge cholecalciferol (Vitamin D3) 50 mcg (2,000 Unit) tablet Take 50 mcg by mouth daily. coenzyme [id number] E 100-5 mg-unit capsule Take 300 mg by mouth. 01/18/2022 levothyroxine sodium (Tirosint) 100 mcg capsule Take 100 mcg by mouth daily before morning meal. Take by mouth before breakfast. Take 30 minutes prior to eating. 02/21/2022 magnesium 200 mg tablet Take 400 mg by mouth daily before morning meal. multivitamin tablet Take 1 tablet by mouth daily. O.N.E. omega 7-fti-rtu-fish oil 1,000 mg (120 mg-180 mg) capsule Take 1 capsule by mouth daily. levothyroxine 112 mcg tablet Take 1 tablet (112 mcg total) by mouth daily. 2 tablet 11/02/2024 12:43 PM PIPELINE MAINTENANCE SUPERVISOR 11/02/2024 vitamins A,C,C-hcpi-btchad (ICaps AREDS) 14,320 Units-226 mg-200 Units per capsule Take 1 capsule by mouth daily. documented as of this encounter Plan of Treatment Not on file documented as of this encounter Procedures Procedure Name Priority Date/Time Associated Diagnosis Comments (TTE) 2D ECHO DOPPLER COLOR Routine 11/02/2024 11:44 AM PIPELINE MAINTENANCE SUPERVISOR Regurgitation Tricuspid Stenosis Mitral And Aortic Regurgitation documented in this encounter Results * (TTE) 2D ECHO DOPPLER COLOR (11/02/2024 11:44 AM PIPELINE MAINTENANCE SUPERVISOR) Ejection Fraction 52 MC CV EIMS Mid-Ascending [...] Laterality Modality Echocardiography 11/02/2024 10:4 0 AM PIPELINE MAINTENANCE SUPERVISOR Impressions 11/02/2024 12:46 PM PIPELINE MAINTENANCE SUPERVISOR LEFT VENTRICLE:Normal left ventricular chamber size. Abnormal [...] the Order-Level Documents. Narrative 11/02/2024 12:46 PM PIPELINE MAINTENANCE SUPERVISOR For the complete report, see the Order-Level [...] M.D., M.P.H. CV ECHO PROCEDURES Final Result documented in this encounter Visit Diagnoses Diagnosis Regurgitation Tricuspid Stenosis Mitral And Aortic Regurgitation documented in this encounter Care Teams Seal Extrusion Operator Relationship Specialty Start Date End Date Elsewhere, Pcp PCP - General Internal Medicine 10/29/24 documented as of this encounter
--- OUTSIDE RECORDS SUMMARY | 2024-11-04 21:46 | XMS_ITS | Encounter Summary ---
Author Organization [facility] Address [address] [place] [address] Care Team Providers Care Slide Developer Name Role Phone Elsewhere, Pcp Primary Care Provider Unavailabl e Reason for Referral * Outpatient (Routine) - Closed Specialty Diagnoses / Procedures Referred By Jesse alexander Referred To Contact Diagnoses Regurgitation Tricuspid Stenosis Mitral And Aortic Regurgitation Procedures DX Chest AP or PA and Lateral 2 Views Osiel Tomlin M.D., M.P.H. [address] [place] [phone] Phone: tel: fax: [facility] Referral ID Status Reason Start Date Expiration Date Visits Re quested Visits Authorized [id number] Closed 10/01/2024 10/01/2025 1 1 IAL EVENTS COORDINATOR Reason for Visit * Outpatient (Routine) - Closed Specialty Diagnoses / Procedures Referred By Jesse alexander Referred To Contact Diagnoses Regurgitation Tricuspid Stenosis Mitral And Aortic Regurgitation Procedures DX Chest AP or PA and Lateral 2 Views Osiel Tomlin M.D., M.P.H. [address] [place] [phone] Phone: tel: fax: [facility] Referral ID Status Reason Start Date Expiration Date Visits Re quested Visits Authorized [id number] Closed 10/01/2024 10/01/2025 1 1 Encounter Details Date Type Department Care Team (Latest Contact Info) Description 11/02/2024 8:15 AM SPECIAL EVENTS COORDINATOR - 11/02/2024 10:30 AM SPECIAL EVENTS COORDINATOR Hospital Encounter Department of Radiology, [facility], in [place], [place] [address] [place] [address] Osiel Tomlin M.D., M.P.H. [address] [place] [address] Regurgitation Tricuspid; Stenosis Mitral And Aortic Regurgitation [...] on file Legal Sex Female 1:40 PM SPECIAL EVENTS COORDINATOR Gender Identity Not on file Sexual Orientation Not on file documented as of this encounter Medications at Time of Discharge cholecalciferol (Vitamin D3) 50 mcg (2,000 Unit) tablet Take 50 mcg by mouth daily. coenzyme V09-cbfmzvt E 100-5 mg-unit capsule Take 300 mg by mouth. 01/18/2022 levothyroxine sodium (Tirosint) 100 mcg capsule Take 100 mcg by mouth daily before morning meal. Take by mouth before breakfast. Take 30 minutes prior to eating. 02/21/2022 magnesium 200 mg tablet Take 400 mg by mouth daily before morning meal. multivitamin tablet Take 1 tablet by mouth daily. O.N.E. omega 7-xqn-urq-fish oil 1,000 mg (120 mg-180 mg) capsule Take 1 capsule by mouth daily. vitamins A,C,M-slwn-mcfnms (ICaps AREDS) 14,320 Units-226 mg-200 Units per capsule Take 1 capsule by mouth daily. documented as of this encounter Plan of Treatment Not on file documented as of this encounter Procedures Procedure Name Priority Date/Time Associated Diagnosis Comments DX CHEST AP OR PA AND LATERAL 2 VIEWS RAD - Routine (most inpatients and all outpatients) 11/02/2024 8:26 AM SPECIAL EVENTS COORDINATOR Regurgitation Tricuspid Stenosis Mitral And Aortic Regurgitation documented in this encounter Results * DX Chest AP or PA and Lateral 2 Views (11/02/2024 8:26 AM SPECIAL EVENTS COORDINATOR) Anatomical Region Laterality Modality Chest, Thoracic RST LOS, Tho racic ARZ LOS, Thoracic FLA LOS N/A Digital Radiography Impressions 11/02/2024 8:43 AM SPECIAL EVENTS COORDINATOR Mild bibasilar atelectasis/scarring. Mild hyperinflation. Left nipple shadow. Mild focal eventration left hemidiaphragm. Cardiac silhouette at the upper limits of normal for size. Fat pad cardiac apex. Aortic calcification. Mild degenerative changes thoracic spine. Several osseous bodies about the right shoulder. Abdominal surgical clips. Narrative 11/02/2024 8:43 AM SPECIAL EVENTS COORDINATOR EXAM: DX CHEST AP OR PA [...] IMG DIAGNOSTIC SONU GING PROCEDURES Final Result documented in this encounter Visit Diagnoses Diagnosis Regurgitation Tricuspid Stenosis Mitral And Aortic Regurgitation documented in this encounter Care Teams Slide Developer Relationship Specialty Start Date End Date Elsewhere, Pcp PCP - General Internal Medicine 10/29/24 documented as of this encounter
--- OUTSIDE RECORDS SUMMARY | 2024-11-04 21:46 | XMS_ITS | Encounter Summary ---
Author Organization [facility] Address [address] [place] [phone] Care Team Providers Care Maitre D Name Role Phone Elsewhere, Pcp Primary Care Provider Unavailabl e Reason for Visit * Reason Comments Patient Education Encounter Details Date Type Department Care Team (Late st Contact Info) Description 11/02/2024 9:00 AM TRADING ANALYST Education Department of Patient Education in [place], [place] [address] [place] [address] Osiel Tomlin M.D., M.P.H. [address] [place] [address] Regurgitation Tricuspid; Stenosis Mitral And Aortic Regurgitation [...] on file Legal Sex Female 1:40 PM TRADING ANALYST Gender Identity Not on file Sexual Orientation Not on file documented as of this encounter Plan of Treatment Not on file documented as of this encounter Visit Diagnoses Diagnosis Regurgitation Tricuspid Stenosis Mitral And Aortic Regurgitation documented in this encounter Care Teams Maitre D Relationship Specialty Start Date End Date Elsewhere, Pcp PCP - General Internal Medicine 10/29/24 documented as of this encounter
--- OUTSIDE RECORDS SUMMARY | 2024-11-04 21:46 | XMS_ITS | Encounter Summary ---
Author Organization [facility] Address [address] [place] [address] Care Team Providers Care Automated Equipment Engineer Technician Name Role Phone Elsewhere, Pcp Primary Care Provider Unavailabl e Encounter Details Date Type Department Care Team (Latest Contact Info) Description 11/02/2024 7:50 AM COMMUNITY RELATIONS SPECIALIST - 11/02/2024 8:14 AM COMMUNITY RELATIONS SPECIALIST Hospital Encounter Department of Laboratory Medicine and Pathology, [facility], in [place], [place] [address] [place] [address] Osiel Tomlin M.D., M.P.H. [address] [place] [phone] Regurgitation Tricuspid; Stenosis Mitral And Aortic Regurgitation [...] on file Legal Sex Female 1:40 PM COMMUNITY RELATIONS SPECIALIST Gender Identity Not on file Sexual Orientation Not on file documented as of this encounter Medications at Time of Discharge cholecalciferol (Vitamin D3) 50 mcg (2,000 Unit) tablet Take 50 mcg by mouth daily. coenzyme F10-mmhskpo E 100-5 mg-unit capsule Take 300 mg by mouth. 01/18/2022 levothyroxine sodium (Tirosint) 100 mcg capsule Take 100 mcg by mouth daily before morning meal. Take by mouth before breakfast. Take 30 minutes prior to eating. 02/21/2022 magnesium 200 mg tablet Take 400 mg by mouth daily before morning meal. multivitamin tablet Take 1 tablet by mouth daily. O.N.E. omega 9-oaw-itl-fish oil 1,000 mg (120 mg-180 mg) capsule Take 1 capsule by mouth daily. vitamins A,C,T-fbcb-cefoze (ICaps AREDS) 14,320 Units-226 mg-200 Units per capsule Take 1 capsule by mouth daily. documented as of this encounter Plan of Treatment Not on file documented as of this encounter Procedures Procedure Name Priority Date/Time Associated Diagnosis Comments LIPID PANEL, S Routine 11/02/2024 8:06 AM COMMUNITY RELATIONS SPECIALIST Regurgitation Tricuspid Stenosis Mitral And Aortic Regurgitation NT-PRO B-TYPE NATRIURETIC PEPTIDE (BNP), S Routine 11/02/2024 8:06 AM COMMUNITY RELATIONS SPECIALIST Regurgitation Tricuspid Stenosis Mitral And Aortic Regurgitation PROTHROMBIN TIME (PT), P Routine 11/02/2024 8:06 AM COMMUNITY RELATIONS SPECIALIST Regurgitation Tricuspid Stenosis Mitral And Aortic Regurgitation CBC WITH DIFFERENTIAL, B Routine 11/02/2024 8:06 AM COMMUNITY RELATIONS SPECIALIST Regurgitation Tricuspid Stenosis Mitral And Aortic Regurgitation SODIUM, S/P Routine 11/02/2024 8:06 AM COMMUNITY RELATIONS SPECIALIST Regurgitation Tricuspid Stenosis Mitral And Aortic Regurgitation POTASSIUM, S/P Routine 11/02/2024 8:06 AM COMMUNITY RELATIONS SPECIALIST Regurgitation Tricuspid Stenosis Mitral And Aortic Regurgitation GLUCOSE, FASTING, S/P Routine 11/02/2024 8:06 AM COMMUNITY RELATIONS SPECIALIST Regurgitation Tricuspid Stenosis Mitral And Aortic Regurgitation ALBUMIN, S/P Routine 11/02/2024 8:06 AM COMMUNITY RELATIONS SPECIALIST Regurgitation Tricuspid Stenosis Mitral And Aortic Regurgitation documented in this encounter Results * Prothrombin Time (PT) (11/02/2024 8:06 AM COMMUNITY RELATIONS SPECIALIST) Prothrombin Time, P 10.0 9.4 - 12.5 sec 11/02/2024 9:03 AM COMMUNITY RELATIONS SPECIALIST DTL INR 0.9 0.9 - 1.1 11/02/2024 9:03 AM COMMUNITY RELATIONS SPECIALIST DTL Comment: ----ADDITIONAL INFORMATION---- Standard intensity warfarin therapeutic range: 2.0 to 3.0 High intensity warfarin therapeutic range: 2.5 to 3.5 Blood (Blood, Venous) 11/02/2024 8:06 AM COMMUNITY RELATIONS SPECIALIST 11/02/2024 8:33 AM COMMUNITY RELATIONS SPECIALIST Osiel Tomlin M.D., M.P.H. LAB BLOOD ADD-ON F inal Result [facility] [address] [place] [address], [facility] [address] [place] [address] * CBC with Differential, Blood (11/02/2024 8:06 AM COMMUNITY RELATIONS SPECIALIST) Pathologist [facility] Hemoglobin 15.0 11.6 - 15.0 g/dL 11/02/2024 8:59 AM COMMUNITY RELATIONS SPECIALIST DTL Hematocrit 43.1 35.5 - 44.9 % 11/02/2024 8:59 AM COMMUNITY RELATIONS SPECIALIST DTL Erythrocytes 4.48 3.92 - 5.13 x10(12)/L 11/02/2024 8:59 AM COMMUNITY RELATIONS SPECIALIST DTL MCV 96.2 78.2 - 97.9 fL 11/02/2024 8:59 AM COMMUNITY RELATIONS SPECIALIST DTL RBC Distrib Width 13.2 12.2 - 16.1 % 11/02/2024 8:59 AM COMMUNITY RELATIONS SPECIALIST DTL Platelet Count 291 157 - 371 x10(9)/L 11/02/2024 8:59 AM COMMUNITY RELATIONS SPECIALIST DTL Leukocytes 5.9 3.4 - 9.6 x10(9)/L 11/02/2024 8:59 AM COMMUNITY RELATIONS SPECIALIST DTL Neutrophils 2.61 1.56 - 6.45 x10(9)/L 11/02/2024 8:59 AM COMMUNITY RELATIONS SPECIALIST DHPM Lymphocytes 2.40 0.95 - 3.07 x10(9)/L 11/02/2024 8:59 AM COMMUNITY RELATIONS SPECIALIST DTL Monocytes 0.56 0.26 - 0.81 x10(9)/L 11/02/2024 8:59 AM COMMUNITY RELATIONS SPECIALIST DTL Eosinophils 0.21 0.03 - 0.48 x10(9)/L 11/02/2024 8:59 AM COMMUNITY RELATIONS SPECIALIST DTL Basophils 0.07 0.01 - 0.08 x10(9)/L 11/02/2024 8:59 AM COMMUNITY RELATIONS SPECIALIST DTL Blood (Blood, Venous) 11/02/2024 8:06 AM COMMUNITY RELATIONS SPECIALIST 11/02/2024 8:33 AM COMMUNITY RELATIONS SPECIALIST Osiel Tomlin M.D., M.P.H. LAB BLOOD ADD-ON F inal Result Performing Organization Address City/[facility]/ZIP Co de Phone Number [facility] [address] [place] [address], [place] [address] * (ABNORMAL) NT-Pro B-Type Natriuretic Peptide (BNP) (11/02/2024 8:06 AM COMMUNITY RELATIONS SPECIALIST) NT-Pro BNP 1118(H) <=540 pg/mL 11/02/2024 9:18 AM COMMUNITY RELATIONS SPECIALIST DTL Comment: NT-proBNP values less than [...] failure. Blood (Blood, Venous) 11/02/2024 8:06 AM COMMUNITY RELATIONS SPECIALIST 11/02/2024 8:53 AM COMMUNITY RELATIONS SPECIALIST Osiel Tomlin M.D., M.P.H. LAB BLOOD ADD-ON F inal Result Performing Organization Address City/[facility]/ZIP Co de Phone Number [facility] [address] [place], [place] [address] [address] [place] [address] * Glucose, Fasting (11/02/2024 8:06 AM COMMUNITY RELATIONS SPECIALIST) [facility] Glucose, P 97 70 - 100 mg/dL 11/02/2024 9:09 AM COMMUNITY RELATIONS SPECIALIST DTL Last Intake 13 hr 11/02/2024 8:53 AM COMMUNITY RELATIONS SPECIALIST DTL Blood (Blood, Venous) 11/02/2024 8:06 AM COMMUNITY RELATIONS SPECIALIST 11/02/2024 8:53 AM COMMUNITY RELATIONS SPECIALIST Osiel Tomlin M.D., M.P.H. LAB BLOOD NON ADD- ON Final Result [facility] [address] [place] [address], [facility] [address] [place] [address] * Albumin (11/02/2024 8:06 AM COMMUNITY RELATIONS SPECIALIST) [facility] Albumin, S 4.3 3.5 - 5.0 g/dL 11/02/2024 9:18 AM COMMUNITY RELATIONS SPECIALIST DT Blood (Blood, Venous) 11/02/2024 8:06 AM COMMUNITY RELATIONS SPECIALIST 11/02/2024 8:53 AM COMMUNITY RELATIONS SPECIALIST Osiel Tomlin M.D., M.P.H. LAB BLOOD ADD-ON F inal Result [facility] [address] [place] [address], [facility] [address] [place] [address] * (ABNORMAL) Lipid Panel (11/02/2024 8:06 AM COMMUNITY RELATIONS SPECIALIST) [facility] Triglycerides 64 mg/dL 11/02/2024 9:18 AM COMMUNITY RELATIONS SPECIALIST DTL Comment: ----REFERENCE VALUE---- Normal: <150 mg/dL Borderline High: 150-199 mg/dL High: 200-499 mg/dL Very High: > or =500 mg/dL Cholesterol, Total 244(H) mg/dL 2024 9:18 AM COMMUNITY RELATIONS SPECIALIST DTL Comment: ----REFERENCE VALUE---- Desirable: < 200 mg/dL Borderline High: 200 - 239 mg/dL High: > or = 240 mg/dL Cholesterol, LDL, Calculated 121 mg/dL 11/02/2024 9:18 AM COMMUNITY RELATIONS SPECIALIST DTL Comment: ----REFERENCE VALUE---- Desirable: <100 mg/dL Above Desirable: 100-129 mg/dL Borderline High: 130-159 mg/dL High: 160-189 mg/dL Very High: >=190 mg/dL ----ADDITIONAL INFORMATION---- LDL cholesterol calculated using the Santana/NIH equation. Cholesterol, HDL, S 112 >=50 mg/dL 11/02/2024 9:18 AM COMMUNITY RELATIONS SPECIALIST DTL Cholesterol, Non-HDL, Calculated 132 mg/dL 11/02/2024 9:18 AM COMMUNITY RELATIONS SPECIALIST DTL Comment: ----REFERENCE VALUE---- Desirable: <130 mg/dL Above Desirable: 130-159 mg/dL Borderline High: 160-189 mg/dL High: 190-219 mg/dL Very High: > or =220 mg/dL Fasting (8 HR or more) Yes 11/02/2024 8:06 AM COMMUNITY RELATIONS SPECIALIST DTL Blood (Blood, Venous) 11/02/2024 8:06 AM COMMUNITY RELATIONS SPECIALIST 11/02/2024 8:53 AM COMMUNITY RELATIONS SPECIALIST Osiel Tomlin M.D., M.P.H. LAB BLOOD ADD-ON F inal Result [facility] [address] [place] [address], [facility] [address] [place] [address] * Sodium (11/02/2024 8:06 AM COMMUNITY RELATIONS SPECIALIST) Sodium, S 139 135 - 145 mmol/L 11/02/2024 9:18 AM COMMUNITY RELATIONS SPECIALIST DTL Blood (Blood, Venous) 11/02/2024 8:06 AM COMMUNITY RELATIONS SPECIALIST 11/02/2024 8:53 AM COMMUNITY RELATIONS SPECIALIST Osiel Tomlin M.D., M.P.H. LAB BLOOD ADD-ON F inal Result Performing Organization Address City/[facility]/ZIP Co de Phone Number [facility] [address] [place] [address], [facility] [address] [place] [address] * Potassium (11/02/2024 8:06 AM COMMUNITY RELATIONS SPECIALIST) Potassium, S 3.7 3.6 - 5.2 mmol/L 11/02/2024 9:18 AM COMMUNITY RELATIONS SPECIALIST DTL Blood (Blood, Venous) 11/02/2024 8:06 AM COMMUNITY RELATIONS SPECIALIST 11/02/2024 8:53 AM COMMUNITY RELATIONS SPECIALIST Osiel Tomlin M.D., M.P.H. LAB BLOOD ADD-ON F inal Result Performing Organization Address City/[facility]/ZIP Co de Phone Number [facility] [address] [place] [address], [facility] [address] [place] [address] documented in this encounter Visit Diagnoses Diagnosis Regurgitation Tricuspid Stenosis Mitral And Aortic Regurgitation documented in this encounter Care Teams Automated Equipment Engineer Technician Relationship Specialty Start Date End Date Elsewhere, Pcp PCP - General Internal Medicine 10/29/24 documented as of this encounter
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
[2024-11-04 21:52] VITALS: BP 144/85; PULSE 86; RESP 18; TEMP 36.6; O2SAT 99; BMI 20.4
--- OUTSIDE RECORDS SUMMARY | 2024-11-04 22:15 | XMS_ITS | Encounter Summary ---
Author Organization [facility] Address [address] [facility] [address] Care Team Providers Care Roll Forming Supervisor Name Role Phone No Ref-Primary, Physician Primary Care Provider Ni Garcia MD Unavailable [phone] Encounter Details Date Type Department Care Team (Late st Contact Info) Description 03/26/[address] [place] [address] [place] [address] Social History Tobacco Use Types Packs/Day Years Used Date Smoking Tobacco: Former Smokeless Tobacco: Never Alcohol Use Standard Drinks/Week Comments Yes 0 (1 standard drink = 0.6 oz pur e alcohol) 2 glasses of wine a week Comments No Sex and Gender Information Value Date Recorded Sex Assigned at Not on file Legal Sex Female 3:56 AM TECHNICAL SALES SPECIALIST Gender Identity Not on file Sexual Orientation Not on file documented as of this encounter Plan of Treatment Not on file documented as of this encounter Visit Diagnoses Not on filedocumented in this encounter Care Teams Roll Forming Supervisor Relationship Specialty Start Date End Date No Ref-Primary, Physician PCP - General 08/24/19 [place] [address] Assigned Endocrinology Provider 08/27/21 03/28/24 documented as of this encounter
--- OUTSIDE RECORDS SUMMARY | 2024-11-04 22:15 | XMS_ITS | Clinical Summary ---
Author Organization [facility] Address [address] [place] [address]. [place] [address] Care Team Providers Care Kennel Operator Name Role Phone No Ref-Primary, Physician Primary [...] on file Legal Sex Female 3:56 AM COMPLAINT INVESTIGATIONS OFFICER Gender Identity Not on file Sexual Orientation [...] <=1.3 TSI index 06/03/2019 3:35 PM CDT [facility] Comment: (Note) Test Performed by: [address] [address] Blood specimen (specimen) 05/26/2019 1:01 PM CDT 05/26/2019 1:02 PM CDT Cierra Bhandari MD LAB - BLOOD ORDERABLES Fi nal Result [facility] [address] [address] [place] [address] from Last 3 Months or Most Recently Relevant to Health Maintenance Insurance [employer] Care Teams Kennel Operator Relationship Specialty Start Date End Date No Ref-Primary, Physician PCP - General 08/24/19
--- OUTSIDE RECORDS SUMMARY | 2024-11-04 22:15 | XMS_ITS | Encounter Summary ---
Author Organization [facility] Address [address] [place] [address] Care Team Providers Care Adjunct Writing Instructor Name Role Phone Unavailable Primary Care Provider Unavailabl e Reason for Visit * Appointment Request (Routine) - Closed Specialty Diagnoses / Procedures Referred By Jesse t Referred To Contact Cardiovascular Surgery Diagnoses Regurgitation Tricuspid Stenosis Mitral And Aortic Regurgitation Referral ID Status Reason Start Date Expiration Date Visits Re quested Visits Authorized [id number] Closed 09/18/2024 09/18/2025 1 1 Encounter Details Date Type Department Care Team (Latest Contact Info) Description 09/22/2024 8:45 AM AUTO SEAT COVER INSTALLER Virtual Visit Department of Cardiovascular Surgery in [place], [place] [address] [place] [address] Chasity Martin APRN, C.N.P., D.N.P. [address] [place] [address] Nonrheumatic Aortic Valve Insufficiency (Primary Dx); Nonrheumatic [...] on file Legal Sex Female 1:40 PM AUTO SEAT COVER INSTALLER Gender Identity Not on file Sexual Orientation Not on file documented as of this encounter Consult Notes * Chasity Martin APRN, C.N.P., D.N.P. - 09/22/2024 8:45 AM CST Ariane Banks : 1945 Visit Date: 09/22/24 [id number] VISIT This is a review of outside medical records, including Care Everywhere, image acquisition and viewing, collaboration and communication with internal subspecialists as well as communication with primary care, and referring providers when indicated. This is a review of outside records to be reviewed and confirmed at the time of [id number] appointment. Currently a visit has not yet been scheduled. REFERRING PHYSICIAN: self referred Home envelope maker: Lauro Medina MD [address] [place] [phone] Cardiology - Interventional Anuja Sosa MD [address] [address] Surgery - Cardiothoracic Home primary care provider: Rody Petit DO [address] [id number] [facility] [place] [address] SUBJECTIVE An appointment has been requested for [...] was then recommended to seek referral to [facility] for surgical intervention for multiple valve issues. [...] Other (see comments) fatigue Current Medications: coenzyme [id number] E 100-5 mg-unit capsule, Take 300 mg by mouth. levothyroxine sodium (Tirosint) 100 mcg capsule, Take 100 mcg by mouth daily before morning meal. Take by mouth before breakfast. Take 30 minutes prior to eating. Magnesium 750 mg Life Extension Super [place] 3: 2 capsule Daily [facility] probiotic/polyphenols/prebiotic blend: Daily Life extension Super selenium [...] DIAGNOSTICS 07/16/2024 CTA chest, abdominal, pelvis TAVR [facility] FINAL IMPRESSIONS: Noncalcified trileaflet aortic valve with [...] report for noncardiovascular findings. 07/16/2024 echo transesophageal [facility] Final Impressions: 1. Moderate AI. Trileaflet valve. No reversal in the descending aorta. 2. Tlaj-vy-abvpfjee TR. 3. Mild MR. 4. LVEF 50-55%. 5. Mildly reduced RV function. 6. Severe KENYON. 7. Dilated ascending aorta [4.3 cm]. 05/29/2024 Echo transthoracic complete [facility] Final Impressions: 1. Normal left ventricular size, [...] echocardiography, if clinically indicated. 08/05/2023 echo transthoracic [facility] Final Conclusion 1. Normal left ventricular chamber [...] studies available for comparison. MR head/brain 05/04/24 [facility] FINDINGS: MRI brain: Vxcj-uz-asimhayo diffuse cerebral volume loss. No mass effect [...] IMPRESSION: 1. No acute intracranial abnormality. 2. Jntu-wj-ochscqvk diffuse cerebral volume loss and minimal chronic [...] records and testing, and follow up. Chasity Martin APRN, [place].N.Lisa., D.N.P. SEAT COVER INSTALLER documented in this encounter Plan of Treatment Not on file documented as of this encounter Visit Diagnoses Diagnosis Nonrheumatic Aortic Valve Insufficiency- Primary Nonrheumatic Mitral Valve Insufficiency Ectasia Thoracic Aortic (HCC) documented in this encounter
--- OUTSIDE RECORDS SUMMARY | 2024-11-04 22:15 | XMS_ITS | Encounter Summary ---
Author Organization [facility] Address [address] [place] [address] Care Team Providers Care Lead Driver Name Role Phone Unavailable Primary Care Provider Unavailabl e Encounter Details Date Type Department Care Team (Latest Contact Info) Description 09/22/2024 Clinical Communication Department of Cardiovascular Surgery in [place], [place] [address] [place] [address] Jefferson Bowles M.D. [address] [place] [address] Social History Tobacco Use Types Packs/Day Years [...] on file Legal Sex Female 1:40 PM HAND PACKER/PACKAGER Gender Identity Not on file Sexual Orientation Not on file documented as of this encounter Miscellaneous Notes * Telephone Encounter - Iesha Hobson - 09/22/2024 4:04 PM CST Jewel afternoon Dr. Bowles, The Patients images have been received and are available in Qreads. Please review at your earliest convenience. Thanks again! PACKER/PACKAGER documented in this encounter Plan of Treatment Not on file documented as of this encounter Visit Diagnoses Not on filedocumented in this encounter
--- OUTSIDE RECORDS SUMMARY | 2024-11-04 22:15 | XMS_ITS | Encounter Summary ---
Author Organization [place] Address [address] [facility] [place] [address] Care Team Providers Care Nurse Clinician Name Role Phone No Ref-Primary, Physician Primary Care Provider Ni Garcia MD Unavailable [phone] Reason for Visit * Reason Onset Date Comments Call Back 09/08/2021 Encounter Details Date Type Department Care Team (Late st Contact Info) Description 09/08/2021 Telephone [facility] Specialty [address] [place] [address] [place] [address] Call Back Social History Tobacco Use Types Packs/Day Years Used Date Smoking Tobacco: Former Smokeless Tobacco: Never Alcohol Use Standard Drinks/Week Comments Yes 0 (1 standard drink = 0.6 oz pur e alcohol) 2 glasses of wine a week Comments No Sex and Gender Information Value Date Recorded Sex Assigned at Not on file Legal Sex Female 3:56 AM CITRUS FRUIT COLORER Gender Identity Not on file Sexual Orientation Not on file COVID-19 Exposure Response Date Recorded In the last month, have you been in contact with someone who was confirmed or suspected to have Coronavirus / COVID-19? Yes 08/25/2021 3:08 PM CITRUS FRUIT COLORER documented as of this encounter Miscellaneous Notes * Telephone Encounter - Tamela Sawyer RN - 09/08/2021 3:45 PM CITRUS FRUIT COLORER Do you have information that you received on this patient and information I can provide her with. US FRUIT COLORER * Telephone Encounter - Vida Guzman - 09/08/2021 9:59 AM CST [facility] Call Center Phone Message May a [...] Center (C[facility]): Endo Travel Screening: Not Applicable US FRUIT COLORER US FRUIT COLORER US FRUIT COLORER documented in this encounter Plan of Treatment Not on file documented as of this encounter Visit Diagnoses Not on filedocumented in this encounter Care Teams Nurse Clinician Relationship Specialty Start Date End Date No Ref-Primary, Physician PCP - General 08/24/19 [place] [address] Assigned Endocrinology Provider 08/27/21 03/28/24 documented as of this encounter
--- OUTSIDE RECORDS SUMMARY | 2024-11-04 22:15 | XMS_ITS | Encounter Summary ---
Author Organization [facility] Address [address] [place] [address] Care Team Providers Care Utility Division Project Manager Name Role Phone Unavailable Primary Care Provider Unavailabl e Encounter Details Date Type Department Care Team (Late st Contact Info) Description 09/24/2024 Documentation Department of Cardiovascular Surgery in [place], [place] [address] [place] [address] Jefferson Bowles M.D. [address] [place] [address] Social History Tobacco Use Types Packs/Day Years [...] on file Legal Sex Female 1:40 PM NECK SKEWER Gender Identity Not on file Sexual Orientation Not on file documented as of this encounter Progress Notes * Jefferson Bowles M.D. - 09/24/2024 6:28 PM CST Chart reviewed. Patient not seen. 79-year-old female with moderate to severe aortic insufficiency, moderate mitral regurgitation severe tricuspid regurgitation by surface echocardiogram. However by ANTONIO the aortic regurgitation is moderate. Tricuspid regurgitation is [id number]. The mitral valve disease is mild. The left ventricular ejection fraction is 50-55%. The left ventricular is not dilated. Apparently she has NYHA functional class 1 symptoms. In summary, Mrs. Banks has undetermined degree of valvular heart disease with minimal symptoms.She needs to be seen in the valve Clinic with a [place] echocardiogram. SKEWER documented in this encounter Plan of Treatment Not on file documented as of this encounter Visit Diagnoses Not on filedocumented in this encounter
--- OUTSIDE RECORDS SUMMARY | 2024-11-04 22:15 | XMS_ITS | Clinical Summary ---
Author Organization [facility] Address [address] [facility] , [address] [place] [address] Phone Care Team Providers Care Hand Bobbin Cleaner Name Role Phone Manjeet LOVE, Ancelmo Monique [phone] Conditions or Problems Problem Name Problem Code Onset Date Status Entry Date Provider Comment Standard Description Annotate Visual field defect 88326446 (SNOMED CT) Active Ancelmo Burroughs MD Visual field defect Medications Medication Instructions Start Date Stop Date Generic Name NDC Provider LEVOTHYROXINE SODIUM 100 MCG TABS levothyroxine [id number] Ancelmo Burroughs MD TIROSINT 100 MCG CAPS levothyroxine [id number] Ancelmo Burroughs MD Medications Administered No information [...] Office Visit H omonymous hemianopia, MRI Heart [facility] 01/2022 MEDS REVIEW Done Documenta tion of [...] Entry Date ORDERS Visual Evoked Potentials 11/11/25 [id number]-15411 VISUAL EVOKED POTENTIAL (END) ORDERS We will contact you with test results 11/11/23 [facility]-[id number] Documentation of current medicatio ns Vital Signs [...]
--- OUTSIDE RECORDS SUMMARY | 2024-11-04 22:15 | XMS_ITS | Encounter Summary ---
Author Organization [place] Address [address] [facility] [place] [address] Care Team Providers Care Ecommerce Analyst Name Role Phone No Ref-Primary, Physician Primary Care Provider Ni Garcia MD Unavailable [phone] Reason for Visit * Reason Onset Date Comments Call Back 06/25/2022 Encounter Details Date Type Department Care Team (Late st Contact Info) Description 06/25/2022 [facility] Specialty [address] [place] [address] [place] [address] Call Back Social History Tobacco Use Types Packs/Day Years Used Date Smoking Tobacco: Former Smokeless Tobacco: Never Alcohol Use Standard Drinks/Week Comments Yes 0 (1 standard drink = 0.6 oz pur e alcohol) 2 glasses of wine a week Comments No Sex and Gender Information Value Date Recorded Sex Assigned at Not on file Legal Sex Female 3:56 AM FORENSIC ECONOMIST Gender Identity Not on file Sexual Orientation Not on file COVID-19 Exposure Response Date Recorded In the last 10 days, have yo u been in contact with someone who was confirmed or suspected to have Coronavirus/COVID-19? No / Unsure 06/01/2022 11:34 AM CDT documented as of this encounter Miscellaneous Notes * Telephone Encounter - Karthik Barney - 06/25/2022 11:23 AM CDT [facility] Call Center Phone Message May a detailed [...] on filedocumented in this encounter Care Teams Ecommerce Analyst Relationship Specialty Start Date End Date No Ref-Primary, Physician PCP - General 08/24/19 Ni Garcia [place] [address] Assigned Endocrinology Provider 08/27/21 03/28/24 documented as of this encounter
--- OUTSIDE RECORDS SUMMARY | 2024-11-04 22:15 | XMS_ITS | Referral Summary ---
Author Organization [facility] Address [address] [place] [address]. [place] [address] Care Team Providers Care Manager Facility Name Role Phone No Ref-Primary, Physician Primary [...] on file Legal Sex Female 3:56 AM MEDICAL RECORDS DIRECTOR Gender Identity Not on file Sexual Orientation [...] <=1.3 TSI index 06/03/2019 3:35 PM CDT [facility] Comment: (Note) Test Performed by: [facility] - [address] [address] Blood specimen (specimen) 05/26/2019 1:01 PM CDT 05/26/2019 1:02 PM CDT Cierra Bhandari MD LAB - BLOOD ORDERABLES Fi nal Result [facility] [address] [facility] [address] [place] [address] from Last 3 Months or Most Recently Relevant to Health Maintenance Insurance [facility] MEDICARE Care Teams Manager Facility Relationship Specialty Start Date End Date No Ref-Primary, Physician PCP - General 08/24/19
--- OUTSIDE RECORDS SUMMARY | 2024-11-04 22:16 | XMS_ITS | Clinical Summary ---
Author Organization [facility] Address [address] [place] [address] Care Team Providers Care Medical Lab Technologist Name Role Phone Unassigned, Provider Primary Care [...] for each transition of care or referral. [facility] Allerg[facility] Active Allergy Reactions Criticality Noted Date [...] by mouth. 04/11/2022 Active Cholecalciferol 250 MCG (270[address] UT) Take by mouth. 04/11/2022 Active Coenzyme [...] age to complete this topic Care Teams Medical Lab Technologist Relationship Specialty Start Date End Date Unassigned, Provider [address] [place] [address] PCP - General 12/08/00
--- OUTSIDE RECORDS SUMMARY | 2024-11-04 22:16 | XMS_ITS | Encounter Summary ---
Author Organization [facility] Address [address] [place] [address] Care Team Providers Care Potato Chip Processing Supervisor Name Role Phone Elsewhere, Pcp Primary Care Provider Unavailabl e Reason for Visit * Reason Onset Date Comments Echo 11/0210/01/2024 Encounter Details Date Type Department Care Team (Latest Contact Info) Description 10/01/2024 Clinical Communication Department of Cardiovascular Medicine in [place], [place] [address] [place] [address] Zi Doty M.D. [address] [place] [address] Echo 11/02 Social History Tobacco Use Types [...] on file Legal Sex Female 1:40 PM DECKHAND CRAB BOAT Gender Identity Not on file Sexual Orientation Not on file documented as of this encounter Miscellaneous Notes * Telephone Encounter - Emmett Navarrete - 10/26/2024 3:18 PM CST 10/26 - Called Confirmed Echo - ANGIE HAND CRAB BOAT * Telephone Encounter - Emmett Navarrete - [...] for replies: P RST CVD VALVE SCHEDULING HAND CRAB BOAT documented in this encounter Plan of Treatment Not on file documented as of this encounter Visit Diagnoses Not on filedocumented in this encounter Care Teams Potato Chip Processing Supervisor Relationship Specialty Start Date End Date Elsewhere, Pcp PCP - General Internal Medicine 10/29/24 documented as of this encounter
--- OUTSIDE RECORDS SUMMARY | 2024-11-04 22:16 | XMS_ITS | Clinical Summary ---
Author Organization [facility] Address [address] [place] [address] Care Team Providers Care Diving Fisher Name Role Phone Elsewhere, Pcp Primary Care Provider Unavailabl e Source Comments Patient records contain information from all sites at [facility]. For routine questions regarding patient records, call [phone] during business hours, M-F 8:00 AM - 5:00 PM Central Time. Record requests for emergency care only can be directed to [phone] at any time.[facility] Allergies Active Allergy Reactions Criticality Noted Date Comments Gluten Other (see comments) 09/13/2016 Fatigue Lactase Other (see comments) 09/13/2016 Fatigue Pork Derived (Porcine) Other (see comments) Fatigue Soy Other (see comments) 09/13/2016 fatigue Medications levothyroxine sodium (Tirosint) 100 mcg capsule Take 100 mcg by mouth daily before morning meal. Take by mouth before breakfast. Take 30 minutes prior to eating. 02/21/2022 Active coenzyme [id number] E 100-5 mg-unit capsule Take 300 mg [...] 1 capsule by mouth daily. Active omega 9-vah-ahb-fish oil 1,000 mg (120 mg-180 mg) capsule Take 1 capsule by mouth daily. Active levothyroxine 112 mcg tablet Take 1 tablet (112 mcg total) by mouth daily. 2 tablet 11/02/2024 12:43 PM TRANSPLANTER ORCHID 11/02/2024 Active Active Problems Problem Noted Date [...] Clinical Communication Department of Cardiovascular Medicine in [place], [place] [address] [place] [phone] Geo Mcclain R.N. 11/02/2024 1:00 PM TRANSPLANTER ORCHID Comprehensive Visit Department of Cardiovascular Medicine in [place], [place] [address] [place] [phone] Osiel Tomlin M.D., M.P.H. Atrial Fibrillation Other Persistent (HCC) (Primary Dx); Nonrheumatic Aortic Valve Insufficiency; Regurgitation Tricuspid Nonrheumatic; Nonrheumatic Mitral Valve Insufficiency; Ectasia Thoracic Aortic (HCC) 11/02/2024 10:31 AM TRANSPLANTER ORCHID - 11/02/2024 11:59 PM TRANSPLANTER ORCHID Hospital Encounter Department of Cardiovascular Diseases in [place], [place] [address] [place] [address] Osiel Tomlin M.D., M.P.H. Regurgitation Tricuspid; Stenosis Mitral And Aortic Regurgitation Discharge Disposition: Home or Self Care 11/02/2024 9:00 AM TRANSPLANTER ORCHID Education Department of Patient Education in [place], [place] [address] [place] [address] Osiel Tomlin M.D., M.P.H. Regurgitation Tricuspid; Stenosis Mitral And Aortic Regurgitation 11/02/2024 8:15 AM TRANSPLANTER ORCHID - 11/02/2024 10:30 AM TRANSPLANTER ORCHID Hospital Encounter Department of Radiology, [facility] in [place], [place] [address] [place] [phone] Osiel Tomlin M.D., M.P.H. Regurgitation Tricuspid; Stenosis Mitral And Aortic Regurgitation Discharge Disposition: Home or Self Care 11/02/2024 7:50 AM TRANSPLANTER ORCHID - 11/02/2024 8:14 AM TRANSPLANTER ORCHID Hospital Encounter Department of Laboratory Medicine and Pathology, [facility] in [place], [place] [address] [place] [phone] Osiel Tomlin M.D., M.P.H. Regurgitation Tricuspid; Stenosis Mitral And Aortic Regurgitation Discharge Disposition: Home or Self Care 10/29/2024 12:15 PM TRANSPLANTER ORCHID Clinical Communication Virtual Review in [place], [place] 200 [place] [address] Pre-visit Intake 10/01/2024 Clinical Communication Department of Cardiovascular Medicine in [place], [place] [address] [place] [phone] Zi Doty M.D. Echo 11/0210/01/2024 Orders Only Department of Cardiovascular Medicine in [place], [place] [address] [place] [phone] [facility] Regurgitation Tricuspid; Stenosis Mitral And Aortic Regurgitation 09/28/2024 Referral Triage Department of Cardiovascular Medicine in [place], [place] [address] [place] [phone] Mounting Machine OperatorReinaldo M.D. Referral Triage (CVD) 09/24/2024 Documentation Department of Cardiovascular Surgery in [address] [phone] Jefferson Bowles M.D. 09/22/2024 8:45 AM TRANSPLANTER ORCHID Virtual Visit Department of Cardiovascular Surgery in [address] [phone] Chasity Martin, DOUG, C.N.P., D.N.P. Nonrheumatic Aortic Valve Insufficiency (Primary Dx); Nonrheumatic Mitral Valve Insufficiency; Ectasia Thoracic Aortic (HCC) 09/22/2024 Clinical Communication Department of Cardiovascular Surgery in [address] [phone] Jefferson Bowles M.D. 09/18/2024 Clinical Communication Department of Cardiovascular Surgery in [address] [phone] Prescheduling, Provider OSM - Outside Materials from [...] on file Legal Sex Female 1:40 PM TRANSPLANTER ORCHID Gender Identity Not on file Sexual Orientation Not on file Last Filed Vital Signs Vital Sign Reading Time Taken Comments Blood Pressure 123/75 11/02/2024 12:53 PM TRANSPLANTER ORCHID Pulse 80 11/02/2024 12:53 PM TRANSPLANTER ORCHID Temperature - - Respiratory Rate - - [...] ECHO DOPPLER COLOR Routine 11/02/2024 11:44 AM TRANSPLANTER ORCHID Regurgitation Tricuspid Stenosis Mitral And Aortic Regurgitation ECG Routine 11/02/2024 8:52 AM TRANSPLANTER ORCHID Regurgitation Tricuspid Stenosis Mitral And Aortic Regurgitation DX CHEST AP OR PA AND LATERAL 2 VIEWS RAD - Routine (most inpatients and all outpatients) 11/02/2024 8:26 AM TRANSPLANTER ORCHID Regurgitation Tricuspid Stenosis Mitral And Aortic Regurgitation PROTHROMBIN TIME (PT), P Routine 11/02/2024 8:06 AM TRANSPLANTER ORCHID Regurgitation Tricuspid Stenosis Mitral And Aortic Regurgitation CBC WITH DIFFERENTIAL, B Routine 11/02/2024 8:06 AM TRANSPLANTER ORCHID Regurgitation Tricuspid Stenosis Mitral And Aortic Regurgitation NT-PRO B-TYPE NATRIURETIC PEPTIDE (BNP), S Routine 11/02/2024 8:06 AM TRANSPLANTER ORCHID Regurgitation Tricuspid Stenosis Mitral And Aortic Regurgitation GLUCOSE, FASTING, S/P Routine 11/02/2024 8:06 AM TRANSPLANTER ORCHID Regurgitation Tricuspid Stenosis Mitral And Aortic Regurgitation ALBUMIN, S/P Routine 11/02/2024 8:06 AM TRANSPLANTER ORCHID Regurgitation Tricuspid Stenosis Mitral And Aortic Regurgitation LIPID PANEL, S Routine 11/02/2024 8:06 AM TRANSPLANTER ORCHID Regurgitation Tricuspid Stenosis Mitral And Aortic Regurgitation SODIUM, S/P Routine 11/02/2024 8:06 AM TRANSPLANTER ORCHID Regurgitation Tricuspid Stenosis Mitral And Aortic Regurgitation POTASSIUM, S/P Routine 11/02/2024 8:06 AM TRANSPLANTER ORCHID Regurgitation Tricuspid Stenosis Mitral And Aortic Regurgitation from Last 3 Months Results * (TTE) 2D ECHO DOPPLER COLOR (11/02/2024 11:44 AM TRANSPLANTER ORCHID) Ejection Fraction 52 MC CV EIMS Mid-Ascending [...] Laterality Modality Echocardiography 11/02/2024 10:4 0 AM TRANSPLANTER ORCHID Impressions 11/02/2024 12:46 PM TRANSPLANTER ORCHID LEFT VENTRICLE:Normal left ventricular chamber size. Abnormal [...] the Order-Level Documents. Narrative 11/02/2024 12:46 PM TRANSPLANTER ORCHID For the complete report, see the Order-Level [...] * ECG 12 Lead (11/02/2024 8:52 AM TRANSPLANTER ORCHID) Ventricular Rate ECG/Min 77 BPM MUSE QRSD Interval 84 ms MUSE QT Interval 396 ms MUSE QTC Interval 448 ms MUSE R [place] 57 degrees MUSE T Wave [place] 2 degrees MUSE 11/02/2024 8:52 AM TRANSPLANTER ORCHID 11/02/2024 8:54 AM TRANSPLANTER ORCHID Impressions MUSE - 11/02/2024 8:54 AM TRANSPLANTER ORCHID Atrial fibrillation Low anterior forces Nonspecific ST [...] and Lateral 2 Views (11/02/2024 8:26 AM TRANSPLANTER ORCHID) Anatomical Region Laterality Modality Chest, Thoracic RST LOS, Tho racic ARZ LOS, Thoracic FLA LOS N/A Digital Radiography Impressions 11/02/2024 8:43 AM TRANSPLANTER ORCHID Mild bibasilar atelectasis/scarring. Mild hyperinflation. Left nipple shadow. Mild focal eventration left hemidiaphragm. Cardiac silhouette at the upper limits of normal for size. Fat pad cardiac apex. Aortic calcification. Mild degenerative changes thoracic spine. Several osseous bodies about the right shoulder. Abdominal surgical clips. Narrative 11/02/2024 8:43 AM TRANSPLANTER ORCHID EXAM: DX CHEST AP OR PA AND [...] * (ABNORMAL) Lipid Panel (11/02/2024 8:06 AM TRANSPLANTER ORCHID) Triglycerides 64 mg/dL 11/02/2024 9:18 AM TRANSPLANTER ORCHID DTL Comment: ----REFERENCE VALUE---- Normal: <150 mg/dL Borderline High: 150-199 mg/dL High: 200-499 mg/dL Very High: > or =500 mg/dL Cholesterol, Total 244(H) mg/dL 2024 9:18 AM TRANSPLANTER ORCHID DTL Comment: ----REFERENCE VALUE---- Desirable: < 200 mg/dL Borderline High: 200 - 239 mg/dL High: > or = 240 mg/dL Cholesterol, LDL, Calculated 121 mg/dL 11/02/2024 9:18 AM TRANSPLANTER ORCHID DTL Comment: ----REFERENCE VALUE---- Desirable: <100 mg/dL Above Desirable: 100-129 mg/dL Borderline High: 130-159 mg/dL High: 160-189 mg/dL Very High: >=190 mg/dL ----ADDITIONAL INFORMATION---- LDL cholesterol calculated using the Santana/NIH equation. Cholesterol, HDL, S 112 >=50 mg/dL 11/02/2024 9:18 AM TRANSPLANTER ORCHID DTL Cholesterol, Non-HDL, Calculated 132 mg/dL 11/02/2024 9:18 AM TRANSPLANTER ORCHID DTL Comment: ----REFERENCE VALUE---- Desirable: <130 mg/dL Above Desirable: 130-159 mg/dL Borderline High: 160-189 mg/dL High: 190-219 mg/dL Very High: > or =220 mg/dL Fasting (8 HR or more) Yes 11/02/2024 8:06 AM TRANSPLANTER ORCHID DTL Blood (Blood, Venous) 11/02/2024 8:06 AM TRANSPLANTER ORCHID 11/02/2024 8:53 AM TRANSPLANTER ORCHID Osiel Tomlin M.D., M.P.H. LAB BLOOD ADD[place] [address], [facility] [place] [address] * (ABNORMAL) NT-Pro B-Type Natriuretic Peptide (BNP) (11/02/2024 8:06 AM TRANSPLANTER ORCHID) NT-Pro BNP 1118(H) <=540 pg/mL 11/02/2024 9:18 AM TRANSPLANTER ORCHID DTL Comment: NT-proBNP values less than 300 [...] failure. Blood (Blood, Venous) 11/02/2024 8:06 AM TRANSPLANTER ORCHID 11/02/2024 8:53 AM TRANSPLANTER ORCHID Osiel Tomlin M.D., M.P.H. LAB BLOOD ADD-ON F inal Result Performing Organization Address City/[facility] Co de Phone Number [address] [place] [address] * Prothrombin Time (PT) (11/02/2024 8:06 AM TRANSPLANTER ORCHID) Pathologist [facility] Prothrombin Time, P 10.0 9.4 - 12.5 sec 11/02/2024 9:03 AM TRANSPLANTER ORCHID DTL INR 0.9 0.9 - 1.1 11/02/2024 9:03 AM TRANSPLANTER ORCHID DTL Comment: ----ADDITIONAL INFORMATION---- Standard intensity warfarin therapeutic range: 2.0 to 3.0 High intensity warfarin therapeutic range: 2.5 to 3.5 Blood (Blood, Venous) 11/02/2024 8:06 AM TRANSPLANTER ORCHID 11/02/2024 8:33 AM TRANSPLANTER ORCHID Osiel Tomlin M.D., M.P.H. LAB BLOOD ADD-ON F inal Result Performing Organization Address City/[facility] [place] [address], [facility] [place] [address] * CBC with Differential, Blood (11/02/2024 8:06 AM TRANSPLANTER ORCHID) Pathologist [facility] Hemoglobin 15.0 11.6 - 15.0 g/dL 11/02/2024 8:59 AM TRANSPLANTER ORCHID DTL Hematocrit 43.1 35.5 - 44.9 % 11/02/2024 8:59 AM TRANSPLANTER ORCHID DTL Erythrocytes 4.48 3.92 - 5.13 x10(12)/L 11/02/2024 8:59 AM TRANSPLANTER ORCHID DTL MCV 96.2 78.2 - 97.9 fL 11/02/2024 8:59 AM TRANSPLANTER ORCHID DTL RBC Distrib Width 13.2 12.2 - 16.1 % 11/02/2024 8:59 AM TRANSPLANTER ORCHID DTL Platelet Count 291 157 - 371 x10(9)/L 11/02/2024 8:59 AM TRANSPLANTER ORCHID DTL Leukocytes 5.9 3.4 - 9.6 x10(9)/L 11/02/2024 8:59 AM TRANSPLANTER ORCHID DTL Neutrophils 2.61 1.56 - 6.45 x10(9)/L 11/02/2024 8:59 AM TRANSPLANTER ORCHID DHPM Lymphocytes 2.40 0.95 - 3.07 x10(9)/L 11/02/2024 8:59 AM TRANSPLANTER ORCHID DTL Monocytes 0.56 0.26 - 0.81 x10(9)/L 11/02/2024 8:59 AM TRANSPLANTER ORCHID DTL Eosinophils 0.21 0.03 - 0.48 x10(9)/L 11/02/2024 8:59 AM TRANSPLANTER ORCHID DTL Basophils 0.07 0.01 - 0.08 x10(9)/L 11/02/2024 8:59 AM TRANSPLANTER ORCHID DTL Blood (Blood, Venous) 11/02/2024 8:06 AM TRANSPLANTER ORCHID 11/02/2024 8:33 AM TRANSPLANTER ORCHID Osiel Tomlin M.D., M.P.H. LAB BLOOD ADD-ON F inal Result Performing Organization Address [facility]/State/[facility] Co de Phone Number [facility] [address] [place] [address], [facility] DTL [facility] [address] [place] [address] DHPM [facility] 200 [place] [address] * Sodium (11/02/2024 8:06 AM TRANSPLANTER ORCHID) Sodium, S 139 135 - 145 mmol/L 11/02/2024 9:18 AM TRANSPLANTER ORCHID DTL Blood (Blood, Venous) 11/02/2024 8:06 AM TRANSPLANTER ORCHID 11/02/2024 8:53 AM TRANSPLANTER ORCHID Osiel Tomlin M.D., M.P.H. LAB BLOOD ADD-ON F inal Result [facility] [address] [place] [address], [facility] 200 [place] [address] * Potassium (11/02/2024 8:06 AM TRANSPLANTER ORCHID) Potassium, S 3.7 3.6 - 5.2 mmol/L 11/02/2024 9:18 AM TRANSPLANTER ORCHID DTL Blood (Blood, Venous) 11/02/2024 8:06 AM TRANSPLANTER ORCHID 11/02/2024 8:53 AM TRANSPLANTER ORCHID us Osiel Tomlin M.D., M.P.H. LAB BLOOD ADD-ON F inal Result Performing Organization Address City/[facility]/ZIP Co de Phone Number [facility] [address] [place] [address], [facility] 200 [place] [address] * Glucose, Fasting (11/02/2024 8:06 AM TRANSPLANTER ORCHID) Glucose, P 97 70 - 100 mg/dL 11/02/2024 9:09 AM TRANSPLANTER ORCHID DTL Last Intake 13 hr 11/02/2024 8:53 AM TRANSPLANTER ORCHID DTL Blood (Blood, Venous) 11/02/2024 8:06 AM TRANSPLANTER ORCHID 11/02/2024 8:53 AM TRANSPLANTER ORCHID us Osiel Tomlin M.D., M.P.H. LAB BLOOD NON ADD- ON Final Result Performing Organization Address City/[facility]/ZIP Co de Phone Number [facility] [address] [place] [address], [facility] 200 [place] [address] * Albumin (11/02/2024 8:06 AM TRANSPLANTER ORCHID) Albumin, S 4.3 3.5 - 5.0 g/dL 11/02/2024 9:18 AM TRANSPLANTER ORCHID DTL Blood (Blood, Venous) 11/02/2024 8:06 AM TRANSPLANTER ORCHID 11/02/2024 8:53 AM TRANSPLANTER ORCHID Osiel Tomlin M.D., M.P.H. LAB BLOOD ADD-ON F inal Result [facility] [address] [place] [address], [place] DTL [facility] [address] [place] [address] from Last 3 Months Insurance MEDICARE [facility] Care Teams Diving Fisher Relationship Specialty Start Date End Date Elsewhere, Pcp PCP - General Internal Medicine 10/29/24
--- OUTSIDE RECORDS SUMMARY | 2024-11-04 22:16 | XMS_ITS | Encounter Summary ---
Author Organization [facility] Address [address] [place] [id number] Care Team Providers Care Textile [employer] Sales Representative Name Role Phone Elsewhere, Pcp Primary Care Provider Unavailabl e Encounter Details Date Type Department Care Team (Latest Contact Info) Description 11/02/2024 7:50 AM EXECUTIVE CHAIRMAN - 11/02/2024 8:14 AM EXECUTIVE CHAIRMAN Hospital Encounter Department of Laboratory Medicine and Pathology, [facility], in [place], [place] [address] [place] [address] Osiel Tomlin M.D., M.P.H. [address] [place] [phone] Regurgitation Tricuspid; Stenosis Mitral And Aortic Regurgitation [...] on file Legal Sex Female 1:40 PM EXECUTIVE CHAIRMAN Gender Identity Not on file Sexual Orientation Not on file documented as of this encounter Medications at Time of Discharge cholecalciferol (Vitamin D3) 50 mcg (2,000 Unit) tablet Take 50 mcg by mouth daily. coenzyme [id number] E 100-5 mg-unit capsule Take 300 mg by mouth. 01/18/2022 levothyroxine sodium (Tirosint) 100 mcg capsule Take 100 mcg by mouth daily before morning meal. Take by mouth before breakfast. Take 30 minutes prior to eating. 02/21/2022 magnesium 200 mg tablet Take 400 mg by mouth daily before morning meal. multivitamin tablet Take 1 tablet by mouth daily. O.N.E. omega 4-ejc-ncb-fish oil 1,000 mg (120 mg-180 mg) capsule Take 1 capsule by mouth daily. vitamins A,C,K-wdim-pcnvnz (ICaps AREDS) 14,320 Units-226 mg-200 Units per capsule Take 1 capsule by mouth daily. documented as of this encounter Plan of Treatment Not on file documented as of this encounter Procedures Procedure Name Priority Date/Time Associated Diagnosis Comments LIPID PANEL, S Routine 11/02/2024 8:06 AM EXECUTIVE CHAIRMAN Regurgitation Tricuspid Stenosis Mitral And Aortic Regurgitation NT-PRO B-TYPE NATRIURETIC PEPTIDE (BNP), S Routine 11/02/2024 8:06 AM EXECUTIVE CHAIRMAN Regurgitation Tricuspid Stenosis Mitral And Aortic Regurgitation PROTHROMBIN TIME (PT), P Routine 11/02/2024 8:06 AM EXECUTIVE CHAIRMAN Regurgitation Tricuspid Stenosis Mitral And Aortic Regurgitation CBC WITH DIFFERENTIAL, B Routine 11/02/2024 8:06 AM EXECUTIVE CHAIRMAN Regurgitation Tricuspid Stenosis Mitral And Aortic Regurgitation SODIUM, S/P Routine 11/02/2024 8:06 AM EXECUTIVE CHAIRMAN Regurgitation Tricuspid Stenosis Mitral And Aortic Regurgitation POTASSIUM, S/P Routine 11/02/2024 8:06 AM EXECUTIVE CHAIRMAN Regurgitation Tricuspid Stenosis Mitral And Aortic Regurgitation GLUCOSE, FASTING, S/P Routine 11/02/2024 8:06 AM EXECUTIVE CHAIRMAN Regurgitation Tricuspid Stenosis Mitral And Aortic Regurgitation ALBUMIN, S/P Routine 11/02/2024 8:06 AM EXECUTIVE CHAIRMAN Regurgitation Tricuspid Stenosis Mitral And Aortic Regurgitation documented in this encounter Results * Prothrombin Time (PT) (11/02/2024 8:06 AM EXECUTIVE CHAIRMAN) Prothrombin Time, P 10.0 9.4 - 12.5 sec 11/02/2024 9:03 AM EXECUTIVE CHAIRMAN DTL INR 0.9 0.9 - 1.1 11/02/2024 9:03 AM EXECUTIVE CHAIRMAN DTL Comment: ----ADDITIONAL INFORMATION---- Standard intensity warfarin therapeutic range: 2.0 to 3.0 High intensity warfarin therapeutic range: 2.5 to 3.5 Blood (Blood, Venous) 11/02/2024 8:06 AM EXECUTIVE CHAIRMAN 11/02/2024 8:33 AM EXECUTIVE CHAIRMAN Osiel Tomlin M.D., M.P.H. LAB BLOOD ADD-ON F inal Result [facility] [address] [place] [address], [facility] [address] [place] [address] * CBC with Differential, Blood (11/02/2024 8:06 AM EXECUTIVE CHAIRMAN) Pathologist [facility] Hemoglobin 15.0 11.6 - 15.0 g/dL 11/02/2024 8:59 AM EXECUTIVE CHAIRMAN DTL Hematocrit 43.1 35.5 - 44.9 % 11/02/2024 8:59 AM EXECUTIVE CHAIRMAN DTL Erythrocytes 4.48 3.92 - 5.13 x10(12)/L 11/02/2024 8:59 AM EXECUTIVE CHAIRMAN DTL MCV 96.2 78.2 - 97.9 fL 11/02/2024 8:59 AM EXECUTIVE CHAIRMAN DTL RBC Distrib Width 13.2 12.2 - 16.1 % 11/02/2024 8:59 AM EXECUTIVE CHAIRMAN DTL Platelet Count 291 157 - 371 x10(9)/L 11/02/2024 8:59 AM EXECUTIVE CHAIRMAN DTL Leukocytes 5.9 3.4 - 9.6 x10(9)/L 11/02/2024 8:59 AM EXECUTIVE CHAIRMAN DTL Neutrophils 2.61 1.56 - 6.45 x10(9)/L 11/02/2024 8:59 AM EXECUTIVE CHAIRMAN DHPM Lymphocytes 2.40 0.95 - 3.07 x10(9)/L 11/02/2024 8:59 AM EXECUTIVE CHAIRMAN DTL Monocytes 0.56 0.26 - 0.81 x10(9)/L 11/02/2024 8:59 AM EXECUTIVE CHAIRMAN DTL Eosinophils 0.21 0.03 - 0.48 x10(9)/L 11/02/2024 8:59 AM EXECUTIVE CHAIRMAN DTL Basophils 0.07 0.01 - 0.08 x10(9)/L 11/02/2024 8:59 AM EXECUTIVE CHAIRMAN DTL Blood (Blood, Venous) 11/02/2024 8:06 AM EXECUTIVE CHAIRMAN 11/02/2024 8:33 AM EXECUTIVE CHAIRMAN Osiel Tomlin M.D., M.P.H. LAB BLOOD ADD-ON F inal Result Performing Organization Address City/[facility]/ZIP Co de Phone Number [facility] [address] [place] [address], [place] [address] * (ABNORMAL) NT-Pro B-Type Natriuretic Peptide (BNP) (11/02/2024 8:06 AM EXECUTIVE CHAIRMAN) NT-Pro BNP 1118(H) <=540 pg/mL 11/02/2024 9:18 AM EXECUTIVE CHAIRMAN DTL Comment: NT-proBNP values less than 300 [...] failure. Blood (Blood, Venous) 11/02/2024 8:06 AM EXECUTIVE CHAIRMAN 11/02/2024 8:53 AM EXECUTIVE CHAIRMAN Osiel Tomlin M.D., M.P.H. LAB BLOOD ADD-ON F inal Result Performing Organization Address City/[facility]/ZIP Co de Phone Number [facility] [address] [place], [place] [address] [address] [place] [address] * Glucose, Fasting (11/02/2024 8:06 AM EXECUTIVE CHAIRMAN) [facility] Glucose, P 97 70 - 100 mg/dL 11/02/2024 9:09 AM EXECUTIVE CHAIRMAN DTL Last Intake 13 hr 11/02/2024 8:53 AM EXECUTIVE CHAIRMAN DTL Blood (Blood, Venous) 11/02/2024 8:06 AM EXECUTIVE CHAIRMAN 11/02/2024 8:53 AM EXECUTIVE CHAIRMAN Osiel Tomlin M.D., M.P.H. LAB BLOOD NON ADD- ON Final Result [facility] [address] [place] [address], [facility] [address] [place] [address] * Albumin (11/02/2024 8:06 AM EXECUTIVE CHAIRMAN) [facility] Albumin, S 4.3 3.5 - 5.0 g/dL 11/02/2024 9:18 AM EXECUTIVE CHAIRMAN DT Blood (Blood, Venous) 11/02/2024 8:06 AM EXECUTIVE CHAIRMAN 11/02/2024 8:53 AM EXECUTIVE CHAIRMAN Osiel Tomlin M.D., M.P.H. LAB BLOOD ADD-ON F inal Result [facility] [address] [place] [address], [facility] [address] [place] [address] * (ABNORMAL) Lipid Panel (11/02/2024 8:06 AM EXECUTIVE CHAIRMAN) [facility] Triglycerides 64 mg/dL 11/02/2024 9:18 AM EXECUTIVE CHAIRMAN DTL Comment: ----REFERENCE VALUE---- Normal: <150 mg/dL Borderline High: 150-199 mg/dL High: 200-499 mg/dL Very High: > or =500 mg/dL Cholesterol, Total 244(H) mg/dL 2024 9:18 AM EXECUTIVE CHAIRMAN DTL Comment: ----REFERENCE VALUE---- Desirable: < 200 mg/dL Borderline High: 200 - 239 mg/dL High: > or = 240 mg/dL Cholesterol, LDL, Calculated 121 mg/dL 11/02/2024 9:18 AM EXECUTIVE CHAIRMAN DTL Comment: ----REFERENCE VALUE---- Desirable: <100 mg/dL Above Desirable: 100-129 mg/dL Borderline High: 130-159 mg/dL High: 160-189 mg/dL Very High: >=190 mg/dL ----ADDITIONAL INFORMATION---- LDL cholesterol calculated using the Santana/NIH equation. Cholesterol, HDL, S 112 >=50 mg/dL 11/02/2024 9:18 AM EXECUTIVE CHAIRMAN DTL Cholesterol, Non-HDL, Calculated 132 mg/dL 11/02/2024 9:18 AM EXECUTIVE CHAIRMAN DTL Comment: ----REFERENCE VALUE---- Desirable: <130 mg/dL Above Desirable: 130-159 mg/dL Borderline High: 160-189 mg/dL High: 190-219 mg/dL Very High: > or =220 mg/dL Fasting (8 HR or more) Yes 11/02/2024 8:06 AM EXECUTIVE CHAIRMAN DTL Blood (Blood, Venous) 11/02/2024 8:06 AM EXECUTIVE CHAIRMAN 11/02/2024 8:53 AM EXECUTIVE CHAIRMAN Osiel Tomlin M.D., M.P.H. LAB BLOOD ADD-ON F inal Result [facility] [address] [place] [address], [facility]TA[facility] [address] [place] [address] * Sodium (11/02/2024 8:06 AM EXECUTIVE CHAIRMAN) Sodium, S 139 135 - 145 mmol/L 11/02/2024 9:18 AM EXECUTIVE CHAIRMAN DTL Blood (Blood, Venous) 11/02/2024 8:06 AM EXECUTIVE CHAIRMAN 11/02/2024 8:53 AM EXECUTIVE CHAIRMAN Osiel Tomlin M.D., M.P.H. LAB BLOOD ADD-ON F inal Result Performing Organization Address City/[facility]/ZIP Co de Phone Number [facility] [address] [place] [address], [facility] [address] [place] [address] * Potassium (11/02/2024 8:06 AM EXECUTIVE CHAIRMAN) Potassium, S 3.7 3.6 - 5.2 mmol/L 11/02/2024 9:18 AM EXECUTIVE CHAIRMAN DTL Blood (Blood, Venous) 11/02/2024 8:06 AM EXECUTIVE CHAIRMAN 11/02/2024 8:53 AM EXECUTIVE CHAIRMAN Osiel Tomlin M.D., M.P.H. LAB BLOOD ADD-ON F inal Result Performing Organization Address City/[facility]/ZIP Co de Phone Number [facility] [address] [place] [address], [facility] [address] [place] [address] documented in this encounter Visit Diagnoses Diagnosis Regurgitation Tricuspid Stenosis Mitral And Aortic Regurgitation documented in this encounter Care Teams [employer] Sales Representative Relationship Specialty Start Date End Date Elsewhere, Pcp PCP - General Internal Medicine 10/29/24 documented as of this encounter
--- OUTSIDE RECORDS SUMMARY | 2024-11-04 22:16 | XMS_ITS | Encounter Summary ---
Author Organization [facility] Address [address] [place] [address] Care Team Providers Care Screen Printer Name Role Phone Elsewhere, Pcp Primary Care Provider Unavailabl e Reason for Referral * Specialty Diagnoses / Procedures Referred By Jesse alexander Referred To Contact Diagnoses Regurgitation Tricuspid Stenosis Mitral And Aortic [facility]urgitation [facility] Referral ID Status Reason Start Date Expiration Date Visits Re quested Visits Authorized DRY WORKER * Outpatient (Routine) - Closed Specialty Diagnoses / Procedures Referred By Contac t Referred To Contact Diagnoses Regurgitation Tricuspid Stenosis Mitral And Aortic Regurgitation Procedures ECG 12 Lead Osiel Tomlin M.D., M.P.H. [address] [place] [phone] Phone: tel: fax: [facility] Referral ID Status Reason Start Date Expiration Date Visits Re quested Visits Authorized [id number] Closed 10/01/2024 10/01/2025 1 1 DRY WORKER * Cardiovascular-Diagnostic (Routine) - Closed Specialty Diagnoses / Procedures Referred By Contac t Referred To Contact Diagnoses Regurgitation Tricuspid Stenosis Mitral And Aortic Regurgitation Procedures Echo Transthoracic (TTE) Osiel Tomlin M.D., M.P.H. [address] [place] [phone] Phone: tel: fax: [facility] Referral ID Status Reason Start Date Expiration Date Visits Re quested Visits Authorized [id number] Closed 10/01/2024 10/01/2025 1 1 DRY WORKER * Outpatient (Routine) - Closed Specialty Diagnoses / Procedures Referred By Jesse alexander Referred To Contact Diagnoses Regurgitation Tricuspid Stenosis Mitral And Aortic Regurgitation Procedures DX Chest AP or PA and Lateral 2 Views Osiel Tomlin M.D., M.P.H. [address] [place] [address] Phone: tel: fax: [facility] Referral ID Status Reason Start Date Expiration Date Visits Re quested Visits Authorized [id number] Closed 10/01/2024 10/01/2025 1 1 DRY WORKER Encounter Details Date Type Department Care Team (Latest Contact Info) Description 10/01/2024 Orders Only Department of Cardiovascular Medicine in [place], [place] [address] [place] [address] [facility], ProviderMD Regurgitation Tricuspid; Stenosis Mitral And [...] on file Legal Sex Female 1:40 PM LAUNDRY WORKER Gender Identity Not on file Sexual Orientation [...] 2D ECHO DOPPLER COLOR (11/02/2024 11:44 AM LAUNDRY WORKER) Ejection Fraction 52 MC CV EIMS Mid-Ascending [...] Laterality Modality Echocardiography 11/02/2024 10:4 0 AM LAUNDRY WORKER Impressions 11/02/2024 12:46 PM LAUNDRY WORKER LEFT VENTRICLE:Normal left ventricular chamber size. Abnormal [...] the Order-Level Documents. Narrative 11/02/2024 12:46 PM LAUNDRY WORKER For the complete report, see the Order-Level [...] * ECG 12 Lead (11/02/2024 8:52 AM LAUNDRY WORKER) Ventricular Rate ECG/Min 77 BPM MUSE QRSD Interval 84 ms MUSE QT Interval 396 ms MUSE QTC Interval 448 ms MUSE R [place] 57 degrees MUSE T Wave [place] 2 degrees MUSE 11/02/2024 8:52 AM LAUNDRY WORKER 11/02/2024 8:54 AM LAUNDRY WORKER Impressions MUSE - 11/02/2024 8:54 AM LAUNDRY WORKER Atrial fibrillation Low anterior forces Nonspecific ST [...] and Lateral 2 Views (11/02/2024 8:26 AM LAUNDRY WORKER) Anatomical Region Laterality Modality Chest, Thoracic RST LOS, Tho racic ARZ LOS, Thoracic FLA LOS N/A Digital Radiography Impressions 11/02/2024 8:43 AM LAUNDRY WORKER Mild bibasilar atelectasis/scarring. Mild hyperinflation. Left nipple shadow. Mild focal eventration left hemidiaphragm. Cardiac silhouette at the upper limits of normal for size. Fat pad cardiac apex. Aortic calcification. Mild degenerative changes thoracic spine. Several osseous bodies about the right shoulder. Abdominal surgical clips. Narrative 11/02/2024 8:43 AM LAUNDRY WORKER EXAM: DX CHEST AP OR PA AND [...] * Prothrombin Time (PT) (11/02/2024 8:06 AM LAUNDRY WORKER) Pathologist [facility] Prothrombin Time, P 10.0 9.4 - 12.5 sec 11/02/2024 9:03 AM LAUNDRY WORKER DTL INR 0.9 0.9 - 1.1 11/02/2024 9:03 AM LAUNDRY WORKER DTL Comment: ----ADDITIONAL INFORMATION---- Standard intensity warfarin therapeutic range: 2.0 to 3.0 High intensity warfarin therapeutic range: 2.5 to 3.5 Blood (Blood, Venous) 11/02/2024 8:06 AM LAUNDRY WORKER 11/02/2024 8:33 AM LAUNDRY WORKER Osiel Tomlin M.D., M.P.H. LAB BLOOD ADD-ON F inal Result [facility] [address] [place] [address], [facility] DTL [facility] [address] [place] [address] * CBC with Differential, Blood (11/02/2024 8:06 AM LAUNDRY WORKER) Pathologist [facility] Hemoglobin 15.0 11.6 - 15.0 g/dL 11/02/2024 8:59 AM LAUNDRY WORKER DTL Hematocrit 43.1 35.5 - 44.9 % 11/02/2024 8:59 AM LAUNDRY WORKER DTL Erythrocytes 4.48 3.92 - 5.13 x10(12)/L 11/02/2024 8:59 AM LAUNDRY WORKER DTL MCV 96.2 78.2 - 97.9 fL 11/02/2024 8:59 AM LAUNDRY WORKER DTL RBC Distrib Width 13.2 12.2 - 16.1 % 11/02/2024 8:59 AM LAUNDRY WORKER DTL Platelet Count 291 157 - 371 x10(9)/L 11/02/2024 8:59 AM LAUNDRY WORKER DTL Leukocytes 5.9 3.4 - 9.6 x10(9)/L 11/02/2024 8:59 AM LAUNDRY WORKER DTL Neutrophils 2.61 1.56 - 6.45 x10(9)/L 11/02/2024 8:59 AM LAUNDRY WORKER [facility] Lymphocytes 2.40 0.95 - 3.07 x10(9)/L 11/02/2024 8:59 AM LAUNDRY WORKER DTL Monocytes 0.56 0.26 - 0.81 x10(9)/L 11/02/2024 8:59 AM LAUNDRY WORKER DTL Eosinophils 0.21 0.03 - 0.48 x10(9)/L 11/02/2024 8:59 AM LAUNDRY WORKER DTL Basophils 0.07 0.01 - 0.08 x10(9)/L 11/02/2024 8:59 AM LAUNDRY WORKER DTL Blood (Blood, Venous) 11/02/2024 8:06 AM LAUNDRY WORKER 11/02/2024 8:33 AM LAUNDRY WORKER us Osiel Tomlin M.D., M.P.H. LAB BLOOD ADD-ON F inal Result [facility] [address] [place] [address], [facility] DTL [facility] [address] [place] [address] DHPM [facility] [address] [place] [address] * (ABNORMAL) NT-Pro B-Type Natriuretic Peptide (BNP) (11/02/2024 8:06 AM LAUNDRY WORKER) Pathologist [facility] NT-Pro BNP 1118(H) <=540 pg/mL 11/02/2024 9:18 AM LAUNDRY WORKER DTL Comment: NT-proBNP values less than 300 [...] failure. Blood (Blood, Venous) 11/02/2024 8:06 AM LAUNDRY WORKER 11/02/2024 8:53 AM LAUNDRY WORKER Osiel Tomlin M.D., M.P.H. LAB BLOOD ADD-ON F inal Result Performing Organization Address City/[facility]/ZIP Co de Phone Number [facility] [address] [place] [address], [facility] DTL [facility] [address] [place] [address] * Glucose, Fasting (11/02/2024 8:06 AM LAUNDRY WORKER) Pathologist [facility] Glucose, P 97 70 - 100 mg/dL 11/02/2024 9:09 AM LAUNDRY WORKER DTL Last Intake 13 hr 11/02/2024 8:53 AM LAUNDRY WORKER DTL Blood (Blood, Venous) 11/02/2024 8:06 AM LAUNDRY WORKER 11/02/2024 8:53 AM LAUNDRY WORKER Osiel Tomlin M.D., M.P.H. LAB BLOOD NON ADD- ON Final Result [facility] [address] [place] [address], [facility] DTL [facility] [address] [place] [address] * Albumin (11/02/2024 8:06 AM LAUNDRY WORKER) Albumin, S 4.3 3.5 - 5.0 g/dL 11/02/2024 9:18 AM LAUNDRY WORKER DTL Blood (Blood, Venous) 11/02/2024 8:06 AM LAUNDRY WORKER 11/02/2024 8:53 AM LAUNDRY WORKER Osiel Tomlin M.D., M.P.H. LAB BLOOD ADD-ON F inal Result [facility] [address] [place] [address], [facility] [address] [place] [address] * (ABNORMAL) Lipid Panel (11/02/2024 8:06 AM LAUNDRY WORKER) Triglycerides 64 mg/dL 11/02/2024 9:18 AM LAUNDRY WORKER DTL Comment: ----REFERENCE VALUE---- Normal: <150 mg/dL Borderline High: 150-199 mg/dL High: 200-499 mg/dL Very High: > or =500 mg/dL Cholesterol, Total 244(H) mg/dL 2024 9:18 AM LAUNDRY WORKER DTL Comment: ----REFERENCE VALUE---- Desirable: < 200 mg/dL Borderline High: 200 - 239 mg/dL High: > or = 240 mg/dL Cholesterol, LDL, Calculated 121 mg/dL 11/02/2024 9:18 AM LAUNDRY WORKER DTL Comment: ----REFERENCE VALUE---- Desirable: <100 mg/dL Above Desirable: 100-129 mg/dL Borderline High: 130-159 mg/dL High: 160-189 mg/dL Very High: >=190 mg/dL ----ADDITIONAL INFORMATION---- LDL cholesterol calculated using the Santana/NIH equation. Cholesterol, HDL, S 112 >=50 mg/dL 11/02/2024 9:18 AM LAUNDRY WORKER DTL Cholesterol, Non-HDL, Calculated 132 mg/dL 11/02/2024 9:18 AM LAUNDRY WORKER DTL Comment: ----REFERENCE VALUE---- Desirable: <130 mg/dL Above Desirable: 130-159 mg/dL Borderline High: 160-189 mg/dL High: 190-219 mg/dL Very High: > or =220 mg/dL Fasting (8 HR or more) Yes 11/02/2024 8:06 AM LAUNDRY WORKER DTL Blood (Blood, Venous) 11/02/2024 8:06 AM LAUNDRY WORKER 11/02/2024 8:53 AM LAUNDRY WORKER Osiel Tomlin M.D., M.P.H. LAB BLOOD ADD-ON F inal Result Performing Organization Address [facility] de Phone Number [facility] [address] [place] [address] * Sodium (11/02/2024 8:06 AM LAUNDRY WORKER) Sodium, S 139 135 - 145 mmol/L 11/02/2024 9:18 AM LAUNDRY WORKER DTL Blood (Blood, Venous) 11/02/2024 8:06 AM LAUNDRY WORKER 11/02/2024 8:53 AM LAUNDRY WORKER Osiel Tomlin M.D., M.P.H. LAB BLOOD ADD-ON F inal Result Performing Organization Address [facility] Co de Phone Number [facility] [address] [place] [address] * Potassium (11/02/2024 8:06 AM LAUNDRY WORKER) Potassium, S 3.7 3.6 - 5.2 mmol/L 11/02/2024 9:18 AM LAUNDRY WORKER DTL Blood (Blood, Venous) 11/02/2024 8:06 AM LAUNDRY WORKER 11/02/2024 8:53 AM LAUNDRY WORKER us Osiel Tomlin M.D., M.P.H. LAB BLOOD ADD-ON F inal Result [facility] [address] [place] [address], [place] DTL [facility] [address] [place] [address] documented in this encounter Visit Diagnoses Diagnosis Regurgitation Tricuspid Stenosis Mitral And Aortic Regurgitation Regurgitation Tricuspid Stenosis Mitral And Aortic Regurgitation Regurgitation Tricuspid Stenosis Mitral And Aortic Regurgitation documented in this encounter Care Teams Screen Printer Relationship Specialty Start Date End Date Elsewhere, Pcp PCP - General Internal Medicine 10/29/24 documented as of this encounter
--- OUTSIDE RECORDS SUMMARY | 2024-11-04 22:16 | XMS_ITS | Clinical Summary ---
Author Organization [facility] Address [place], [place] [address] Care Team Providers Care Corporate Sales Representative Name Role Phone Marisabel Rody Sibley Primary Care Provider [phone] Allergies Active Allergy Reactions Criticality Noted Date [...] Copper balance - 1 daily Emmett Banner gut health probiotic/polyph enols/prebiotic blend: Daily Dandy [...] Type Department Care Team Description 11/02/2024 Telephone [facility] [address] [place] [address] Shruti Dean PA Medication Management (TIROSINT 112) 10/29/2024 Telephone [facility] [address] [place] [address] Shruti Dean PA Rx Triosint 10/26/2024 11:15 AM PBX TECHNICIAN Orders Only [address] [address] [place], [place] Lab 10/26/2024 Travel 10/14/[address] [address] Shruti Dean PA Thyroid Test Questions 10/11/[address] [address] Rody Petit DO Questions (blood draw & surgery) 10/05/2024 Telephone [facility] [address] [place] [address] Rody Petit DO Error-please disregard (Error ) 09/26/2024 Nurse Triage [facility] [address] [place] [address] Rody Petit, Hearing Loss 09/14/[address] [address] Shruti Dean PA Medication Management 09/09/2024 11:00 AM PBX TECHNICIAN Office Visit [address] [address] Shruti Dean PA Follow Up 09/09/2024 Travel from Last 3 Months Immunizations Name Administration Dates Next Due COVID-19 vaccine (Pfizer-Bio NTech 30mcg/0.3mL) 12YO+ BIVALENT PF, MDV 05/03/2023,09/11/2022 COVID-19 vaccine (Pfizer-Bio NTech 30mcg/0.3mL) 12YO+ ANDRES-SUCROSE PF, MDV 01/11/2022 COVID-19 vaccine (C3 JianBio NTech 30mcg/0.3mL) PF, MDV 07/02/2021,12/14/2020,11/23/2020 Influenza, High-dose [...] PM CDT Legal Sex Female 6:41 AM PBX TECHNICIAN Gender Identity Female 05/20/2020 9:49 PM CDT Sexual Orientation Bisexual 05/20/2020 9: 50 PM CDT Sexual Orientation Straight 05/20/2020 9: 50 PM CDT 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 Not on file Not [...] st Contact Info) Description 11/26/2024 9:15 AM PBX TECHNICIAN Orders Only [facility] [address] [place] [address] [place] 11/30/2024 2:00 PM PBX TECHNICIAN Office Visit [facility] [address] [place] [address] Shruti Dean PA [address] [place] [address] Health Maintenance Due Date Last Done Comments [...] Diagnosis Comments T3,FREE Routine 10/26/2024 11:23 AM PBX TECHNICIAN 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 T4,FREE Routine 10/26/2024 11:23 AM PBX TECHNICIAN 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 TSH Routine 10/26/2024 11:23 AM PBX TECHNICIAN 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 FERRITIN Routine 10/26/2024 11:23 AM PBX TECHNICIAN 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 Hair loss IRON PLUS IRON BINDING CAP Routine 10/26/2024 11:23 AM PBX TECHNICIAN 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 See Note 1 Note 1 For additional information, please refer to http://education.Xango.com/faq/LDT669 (This link is being provided for informational/ educational purposes only.) Blood BLOOD SPECIMEN / Unknown 10/26/2024 11:23 AM PBX TECHNICIAN 10/26/2024 11:25 AM PBX TECHNICIAN Narrative [facility] - 10/27/2024 3:56 AM PBX TECHNICIAN FASTING:YES FASTING: YES Shruti ESTEVES SEND OUTS Final Re sult Performing Organization Address [facility]/ZIP Co de Phone Number eigital [facility] [address] [place] [address], [facility] [address] [place] [address] * (ABNORMAL) TSH (10/26/2024 11:23 AM PBX TECHNICIAN) Pathologist [facility] TSH 5.63(H) 0.40 - 4.50 mIU/L [facility] Blood BLOOD SPECIMEN / Unknown 10/26/2024 11:23 AM PBX TECHNICIAN 10/26/2024 11:25 AM PBX TECHNICIAN Narrative [facility] - 10/27/2024 6:39 AM PBX TECHNICIAN FASTING:YES FASTING: YES us Shruti ESTEVES CHEMISTRY Final Re sult [facility] [address] [place] [address], [place] [phone] [facility] [facility] [address] [place] [address] * IRON PLUS IRON BINDING CAP (10/26/2024 11:23 AM PBX TECHNICIAN) Pathologist [facility] IRON, TOTAL 102 45 - 160 mcg/dL [facility] IRON BINDING CAPACITY 326 250 - 450 mcg/dL (calc) [facility] % SATURATION 31 16 - 45 % (calc) [facility] Blood BLOOD SPECIMEN / Unknown 10/26/2024 11:23 AM PBX TECHNICIAN 10/26/2024 11:25 AM PBX TECHNICIAN Narrative [facility] - 10/27/2024 6:12 AM PBX TECHNICIAN FASTING:YES FASTING: YES us Shruti ESTEVES CHEMISTRY Final Re sult Performing Organization Address [facility]/ZIP Co de Phone Number [facility] [address] [place] [address], [place] [phone] [facility] [address] [place] [address] * T3,FREE (10/26/2024 11:23 AM PBX TECHNICIAN) [facility] T3, FREE 2.3 2.3 - 4.2 pg/mL [facility] Blood BLOOD SPECIMEN / Unknown 10/26/2024 11:23 AM PBX TECHNICIAN 10/26/2024 11:25 AM PBX TECHNICIAN Narrative [facility] - 10/27/2024 6:39 AM PBX TECHNICIAN FASTING:YES FASTING: YES us Shruti ESTEVES CHEMISTRY Final Re sult [facility] [address] [place] [address], [place] [phone] [facility] [address] [place] [address] * T4,FREE (10/26/2024 11:23 AM PBX TECHNICIAN) T4, FREE 1.5 0.8 - 1.8 ng/dL [facility] Blood BLOOD SPECIMEN / Unknown 10/26/2024 11:23 AM PBX TECHNICIAN 10/26/2024 11:25 AM PBX TECHNICIAN Narrative [facility] - 10/27/2024 6:39 AM PBX TECHNICIAN FASTING:YES FASTING: YES us Shruti ESTEVES CHEMISTRY Final Re sult Performing Organization Address [facility]/ZIP Co de Phone Number [facility] [address] [place] [address], [facility] [address] [place] [address] * FERRITIN (10/26/2024 11:23 AM PBX TECHNICIAN) FERRITIN 39 16 - 288 ng/mL [facility] Blood BLOOD SPECIMEN / Unknown 10/26/2024 11:23 AM PBX TECHNICIAN 10/26/2024 11:25 AM PBX TECHNICIAN Narrative [facility] - 10/27/2024 3:56 AM PBX TECHNICIAN FASTING:YES FASTING: YES us Shruti ESTEVES CHEMISTRY Final Re sult Performing Organization Address [facility] Co de Phone Number [facility] [address] [place] [address], [facility] [address] [place] [address] * XR DEXA BONE DENSITY 2 SITES [...] MEDICARE PART A HB ONLY BLUE CROSS CHILKAT BLUE MR PB ONLY Advance Directives Documents on File Type Date Recorded 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, 09/22/2014 * Full Code (Latest Code Status [...] 12:38 PM 07/18/2018 12:38 PM Care Teams Corporate Sales Representative Relationship Specialty Start Date End Date Rody Petit DO [address] [place] [address] PCP - General Family Practice 06/16/20
--- OUTSIDE RECORDS SUMMARY | 2024-11-04 22:16 | XMS_ITS | Encounter Summary ---
Author Organization [facility] Address [address] [place] [address] Care Team Providers Care National Accounts Sales Name Role Phone Elsewhere, Pcp Primary Care Provider Unavailabl e Reason for Referral * Cardiovascular-Diagnostic (Routine) - Closed Specialty Diagnoses / Procedures Referred By Jesse alexander Referred To Contact Diagnoses Regurgitation Tricuspid Stenosis Mitral And Aortic Regurgitation Procedures Echo Transthoracic (TTE) Osiel Tomlin M.D., M.P.H. [address] [place] [phone] Phone: tel: fax: [facility] Referral ID Status Reason Start Date Expiration Date Visits Re quested Visits Authorized [id number] Closed 10/01/2024 10/01/2025 1 1 ONIZER TESTER Reason for Visit * Cardiovascular-Diagnostic (Routine) - Closed Specialty Diagnoses / Procedures Referred By Jesse alexander Referred To Contact Diagnoses Regurgitation Tricuspid Stenosis Mitral And Aortic Regurgitation Procedures Echo Transthoracic (TTE) Osiel Tomlin M.D., M[facility]P.H[facility] [address] [place] [phone] Phone: tel: fax: [facility] Referral ID Status Reason Start Date Expiration Date Visits Re quested Visits Authorized [id number] Closed 10/01/2024 10/01/2025 1 1 Encounter Details Date Type Department Care Team (Latest Contact Info) Description 11/02/2024 10:31 AM CARBONIZER TESTER - 11/02/2024 11:59 PM CARBONIZER TESTER Hospital Encounter Department of Cardiovascular Diseases in [place], [place] [address] [place] [address] Osiel Tomlin M.D., M.P.H. [address] [place] [address] Regurgitation Tricuspid; Stenosis Mitral And Aortic Regurgitation [...] on file Legal Sex Female 1:40 PM CARBONIZER TESTER Gender Identity Not on file Sexual Orientation Not on file documented as of this encounter Medications at Time of Discharge cholecalciferol (Vitamin D3) 50 mcg (2,000 Unit) tablet Take 50 mcg by mouth daily. coenzyme C75-[id number] E 100-5 mg-unit capsule Take 300 mg by mouth. 01/18/2022 levothyroxine sodium (Tirosint) 100 mcg capsule Take 100 mcg by mouth daily before morning meal. Take by mouth before breakfast. Take 30 minutes prior to eating. 02/21/2022 magnesium 200 mg tablet Take 400 mg by mouth daily before morning meal. multivitamin tablet Take 1 tablet by mouth daily. O.N.E. omega 9-bfc-kll-fish oil 1,000 mg (120 mg-180 mg) capsule Take 1 capsule by mouth daily. levothyroxine 112 mcg tablet Take 1 tablet (112 mcg total) by mouth daily. 2 tablet 11/02/2024 12:43 PM CARBONIZER TESTER 11/02/2024 vitamins A,C,P-scne-oyybry (ICaps AREDS) 14,320 Units-226 mg-200 Units per capsule Take 1 capsule by mouth daily. documented as of this encounter Plan of Treatment Not on file documented as of this encounter Procedures Procedure Name Priority Date/Time Associated Diagnosis Comments (TTE) 2D ECHO DOPPLER COLOR Routine 11/02/2024 11:44 AM CARBONIZER TESTER Regurgitation Tricuspid Stenosis Mitral And Aortic Regurgitation documented in this encounter Results * (TTE) 2D ECHO DOPPLER COLOR (11/02/2024 11:44 AM CARBONIZER TESTER) Ejection Fraction 52 MC CV EIMS Mid-Ascending [...] Laterality Modality Echocardiography 11/02/2024 10:4 0 AM CARBONIZER TESTER Impressions 11/02/2024 12:46 PM CARBONIZER TESTER LEFT VENTRICLE:Normal left ventricular chamber size. Abnormal [...] the Order-Level Documents. Narrative 11/02/2024 12:46 PM CARBONIZER TESTER For the complete report, see the Order-Level [...] Regurgitation documented in this encounter Care Teams National Accounts Sales Relationship Specialty Start Date End Date Elsewhere, Pcp PCP - General Internal Medicine 10/29/24 documented as of this encounter
--- OUTSIDE RECORDS SUMMARY | 2024-11-04 22:16 | XMS_ITS | Encounter Summary ---
Author Organization [facility] Address [address] [place] [address] Care Team Providers Care Food And Beverage Service Manager Name Role Phone Elsewhere, Pcp Primary Care Provider Unavailabl e Reason for Visit * Reason Onset Date Comments Pre-visit Intake 10/29/2024 * Appointment Request (Routine) - Authorized Specialty Diagnoses / Procedures Referred By Jesse alexander Referred To Contact Cardiovascular Disease Zi Doty M.D. [address] [place] [phone] Phone: tel: fax: Referral ID Status Reason Start Date Expiration Date V isits Requested Visits Authorized [id number] Authorized 10/01/2024 10/01/2025 1 1 Encounter Details Date Type Department Care Team (Latest Contact Info) Description 10/29/2024 12:[address] SAFETY ENGINEER Clinical Communication Virtual Review in [place], [place] [address] [place] [phone] Pre-visit Intake Social History Tobacco Use Types [...] on file Legal Sex Female 1:[address] SAFETY ENGINEER Gender Identity Not on file Sexual Orientation Not on file documented as of this encounter Plan of Treatment Not on file documented as of this encounter Visit Diagnoses Not on filedocumented in this encounter Care Teams Food And Beverage Service Manager Relationship Specialty Start Date End Date Elsewhere, Pcp PCP - General Internal Medicine 10/29/24 documented as of this encounter
--- OUTSIDE RECORDS SUMMARY | 2024-11-04 22:16 | XMS_ITS | Encounter Summary ---
Author Organization [facility] Address [address] [place] [address] Care Team Providers Care [place] Attorney Name Role Phone Unavailable Primary Care Provider Unavailabl e Reason for Visit * Reason Onset Date Comments Referral Triage 09/28/2024 CVD Encounter Details Date Type Department Care Team (Latest Contact Info) Description 09/28/2024 Referral Triage Department of Cardiovascular Medicine in [place], [place] [address] [place] [address] Antique FinisherReinaldo M.D. Referral Triage (CVD) Social History Tobacco [...] on file Legal Sex Female 1:40 PM COLLEGE TEACHER Gender Identity Not on file Sexual Orientation Not on file documented as of this encounter Plan of Treatment Not on file documented as of this encounter Visit Diagnoses Not on filedocumented in this encounter
--- OUTSIDE RECORDS SUMMARY | 2024-11-04 22:16 | XMS_ITS | Encounter Summary ---
Author Organization [facility] Address [address] [place] [id number] Care Team Providers Care Electrical Assemblies Supervisor Name Role Phone Elsewhere, Pcp Primary Care Provider Unavailabl e Reason for Referral * Outpatient (Routine) - Closed Specialty Diagnoses / Procedures Referred By Jesse alexander Referred To Contact Diagnoses Regurgitation Tricuspid Stenosis Mitral And Aortic Regurgitation Procedures DX Chest AP or PA and Lateral 2 Views Osiel Tomlin M.D., M.P.H. [address] [place] [phone] Phone: tel: fax: [facility] Referral ID Status Reason Start Date Expiration Date Visits Re quested Visits Authorized [id number] Closed 10/01/2024 10/01/2025 1 1 RITY INSTALLATION SALES TECHNICIAN Reason for Visit * Outpatient (Routine) - Closed Specialty Diagnoses / Procedures Referred By Jesse alexander Referred To Contact Diagnoses Regurgitation Tricuspid Stenosis Mitral And Aortic Regurgitation Procedures DX Chest AP or PA and Lateral 2 Views Osiel Tomlin M.D., M.P.H. [address] [place] [phone] Phone: tel: fax: [facility] Referral ID Status Reason Start Date Expiration Date Visits Re quested Visits Authorized [id number] Closed 10/01/2024 10/01/2025 1 1 Encounter Details Date Type Department Care Team (Latest Contact Info) Description 11/02/2024 8:15 AM SECURITY INSTALLATION SALES TECHNICIAN - 11/02/2024 10:30 AM SECURITY INSTALLATION SALES TECHNICIAN Hospital Encounter Department of Radiology, [facility], in [place], [place] [address] [place] [address] Osiel Tomlin M.D., M.P.H. [address] [place] [address] Regurgitation Tricuspid; Stenosis Mitral And Aortic Regurgitation [...] on file Legal Sex Female 1:40 PM SECURITY INSTALLATION SALES TECHNICIAN Gender Identity Not on file Sexual Orientation Not on file documented as of this encounter Medications at Time of Discharge cholecalciferol (Vitamin D3) 50 mcg (2,000 Unit) tablet Take 50 mcg by mouth daily. coenzyme R63-tnfnwpc E 100-5 mg-unit capsule Take 300 mg by mouth. 01/18/2022 levothyroxine sodium (Tirosint) 100 mcg capsule Take 100 mcg by mouth daily before morning meal. Take by mouth before breakfast. Take 30 minutes prior to eating. 02/21/2022 magnesium 200 mg tablet Take 400 mg by mouth daily before morning meal. multivitamin tablet Take 1 tablet by mouth daily. O.N.E. omega 6-wgy-tfz-fish oil 1,000 mg (120 mg-180 mg) capsule Take 1 capsule by mouth daily. vitamins A,C,Q-ollx-ikilue (ICaps AREDS) 14,320 Units-226 mg-200 Units per capsule Take 1 capsule by mouth daily. documented as of this encounter Plan of Treatment Not on file documented as of this encounter Procedures Procedure Name Priority Date/Time Associated Diagnosis Comments DX CHEST AP OR PA AND LATERAL 2 VIEWS RAD - Routine (most inpatients and all outpatients) 11/02/2024 8:26 AM SECURITY INSTALLATION SALES TECHNICIAN Regurgitation Tricuspid Stenosis Mitral And Aortic Regurgitation documented in this encounter Results * DX Chest AP or PA and Lateral 2 Views (11/02/2024 8:26 AM SECURITY INSTALLATION SALES TECHNICIAN) Anatomical Region Laterality Modality Chest, Thoracic RST LOS, Tho racic ARZ LOS, Thoracic FLA LOS N/A Digital Radiography Impressions 11/02/2024 8:43 AM SECURITY INSTALLATION SALES TECHNICIAN Mild bibasilar atelectasis/scarring. Mild hyperinflation. Left nipple shadow. Mild focal eventration left hemidiaphragm. Cardiac silhouette at the upper limits of normal for size. Fat pad cardiac apex. Aortic calcification. Mild degenerative changes thoracic spine. Several osseous bodies about the right shoulder. Abdominal surgical clips. Narrative 11/02/2024 8:43 AM SECURITY INSTALLATION SALES TECHNICIAN EXAM: DX CHEST AP OR PA AND [...] Regurgitation documented in this encounter Care Teams Electrical Assemblies Supervisor Relationship Specialty Start Date End Date Elsewhere, Pcp PCP - General Internal Medicine 10/29/24 documented as of this encounter
--- OUTSIDE RECORDS SUMMARY | 2024-11-04 22:16 | XMS_ITS | Encounter Summary ---
Author Organization [facility] Address [address] [place] [address] Care Team Providers Care Wine Cellar Stock Clerk Name Role Phone Elsewhere, Pcp Primary Care Provider Unavailabl e Reason for Visit * Reason Comments Patient Education Encounter Details Date Type Department Care Team (Late st Contact Info) Description 11/02/2024 9:00 AM OCCUPATIONAL SAFETY SPECIALIST Education Department of Patient Education in [place], [place] [address] [place] [address] Osiel Tomlin M.D., M.P.H. [address] [place] [address] Regurgitation Tricuspid; Stenosis Mitral And Aortic Regurgitation [...] on file Legal Sex Female 1:40 PM OCCUPATIONAL SAFETY SPECIALIST Gender Identity Not on file Sexual Orientation Not on file documented as of this encounter Plan of Treatment Not on file documented as of this encounter Visit Diagnoses Diagnosis Regurgitation Tricuspid Stenosis Mitral And Aortic Regurgitation documented in this encounter Care Teams Wine Cellar Stock Clerk Relationship Specialty Start Date End Date Elsewhere, Pcp PCP - General Internal Medicine 10/29/24 documented as of this encounter
--- OUTSIDE RECORDS SUMMARY | 2024-11-04 22:16 | XMS_ITS | Encounter Summary ---
Author Organization [facility] Address [address] [place] [address] Care Team Providers Care Mess Cook Name Role Phone Elsewhere, Pcp Primary Care Provider Unavailabl e Encounter Details Date Type Department Care Team (Latest Contact Info) Description 11/03/2024 Clinical Communication Department of Cardiovascular Medicine in [place], [place] [address] [place] [address] Geo Mcclain RCandidoN. Social History Tobacco Use [...] on file Legal Sex Female 1:40 PM FIELD CASHIER Gender Identity Not on file Sexual Orientation Not on file documented as of this encounter Miscellaneous Notes * Telephone Encounter - Geo Mcclain RCandidoN. - 11/03/2024 11:14 AM FIELD CASHIER RN called pt on behalf of Dr [...] to learn. Will relay to Dr Tomlin. D CASHIER documented in this encounter Plan of Treatment Not on file documented as of this encounter Visit Diagnoses Not on filedocumented in this encounter Care Teams Mess Cook Relationship Specialty Start Date End Date Elsewhere, Pcp PCP - General Internal Medicine 10/29/24 documented as of this encounter
--- OUTSIDE RECORDS SUMMARY | 2024-11-04 22:16 | XMS_ITS | Encounter Summary ---
Author Organization [facility] Address [address] [place] [address] Care Team Providers Care Aircraft Ordnance Systems Mechanic Name Role Phone Elsewhere, Pcp Primary Care Provider Unavailabl e Reason for Visit * Appointment Request (Routine) - Closed Specialty Diagnoses / Procedures Referred By Jesse alexander Referred To Contact Cardiovascular Disease Diagnoses Regurgitation Tricuspid Stenosis Mitral And Aortic Regurgitation Referral ID Status Reason Start Date Expiration Date Visits Re quested Visits Authorized [id number] Closed 09/18/2024 09/18/2025 1 1 Encounter Details Date Type Department Care Team (Latest Contact Info) Description 11/02/2024 1:00 PM OIL REFINER Comprehensive Visit Department of Cardiovascular Medicine in [place], [place] [address] [place] [address] Osiel Tomlin M.D., M.P.H. [address] [place] [address] Atrial Fibrillation Other Persistent (HCC) (Primary Dx); [...] on file Legal Sex Female 1:40 PM OIL REFINER Gender Identity Not on file Sexual Orientation Not on file documented as of this encounter Last Filed Vital Signs Vital Sign Reading Time Taken Comments Blood Pressure 123/75 11/02/2024 12:53 PM OIL REFINER Pulse 80 11/02/2024 12:53 PM OIL REFINER Temperature - - Respiratory Rate - - [...] and there is no systemic hypertension. Shehas [place] heart Association functional class 2 limitations but [...] resulted in the of her at the catshovel driver of the other vehicle. A recent transesophageal echocardiogram 07/16/2024 performed locally showed moderate aortic valve regurgitation, no reversals in the descending aorta, lqug-kz-upedtnqn tricuspid valve regurgitation, and mild mitral valve [...] Take 50 mcg by mouth daily. coenzyme V14-slmqkhf E 100-5 mg-unit capsule, Take 300 mg by mouth. levothyroxine sodium (Tirosint) 100 mcg capsule, Take 100 mcg by mouth daily before morning meal. Take by mouth before breakfast. Take 30 minutes prior to eating. magnesium 200 mg tablet, Take 400 mg by mouth daily before morning meal. multivitamin tablet, Take 1 tablet by mouth daily. O.N.E. omega 1-iax-qsl-fish oil 1,000 mg (120 mg-180 mg) capsule, Take 1 capsule by mouth daily. levothyroxine 112 mcg tablet, Take 1 tablet (112 mcg total) by mouth daily. vitamins A,C,U-llly-axrhbw (ICaps AREDS) 14,320 Units-226 mg-200 Units per [...] I will send communication to her local waterproofer Dr. Lauro Medina. Osiel Tomlin M.D., M.P.H. 11/02/2024 [1] Current Medications: cholecalciferol (Vitamin D3) 50 mcg (2,000 Unit) tablet, Take 50 mcg by mouth daily. coenzyme V37-kzrgwch E 100-5 mg-unit capsule, Take 300 mg by mouth. levothyroxine sodium (Tirosint) 100 mcg capsule, Take 100 mcg by mouth daily before morning meal. Take by mouth before breakfast. Take 30 minutes prior to eating. magnesium 200 mg tablet, Take 400 mg by mouth daily before morning meal. multivitamin tablet, Take 1 tablet by mouth daily. O.N.E. omega 5-jnc-jho-fish oil 1,000 mg (120 mg-180 mg) capsule, Take 1 capsule by mouth daily. levothyroxine 112 mcg tablet, Take 1 tablet (112 mcg total) by mouth daily. vitamins A,C,S-djmy-eyuosx (ICaps AREDS) 14,320 Units-226 mg-200 Units per capsule, Take 1 capsule by mouth daily. REFINER REFINER documented in this encounter Plan of Treatment Not on file documented as of this encounter Visit Diagnoses Diagnosis Atrial Fibrillation Other Persistent (HCC)- Primary Nonrheumatic Aortic Valve Insufficiency Regurgitation Tricuspid Nonrheumatic Nonrheumatic Mitral Valve Insufficiency Ectasia Thoracic Aortic (HCC) documented in this encounter Care Teams Aircraft Ordnance Systems Mechanic Relationship Specialty Start Date End Date Elsewhere, Pcp PCP - General Internal Medicine 10/29/24 documented as of this encounter
--- NOTE | 2024-11-04 23:11 | ED.GENADULT ---
HPI - General Adult General Date Seen: 11/04/24 Chief complaint: Fall/Minor Trauma Stated complaint: fell on L shoulder Time Seen by Provider: 11/04/24 21:53 History of Present Illness HPI narrative: Patient is an 79-year-old woman here for evaluation of left periscapular pain after a fall at home. She says she was trying to lift up a plant, lost her balance and fell to the side landing on her left arm. She has pain by her scapula with moving and deep breathing. She is not otherwise short of breath. Did not hit her head. No neck or back pain otherwise. She is not anticoagulated. She does have a history of valvular dysfunction, was just at [facility] last week for 2nd opinion and reports that she had multiple studies including an echo, CT of the chest, chest x-ray. That evaluation is ongoing. No syncope tonight. Related Data Home Medications ?Medication ?Instructions ?Recorded ?Confirmed levothyroxine 100 mcg capsule 100 mcg PO 08/02/22 08/09/23 (Tirosint) levothyroxine 88 mcg capsule 88 mcg PO DAILY 08/09/23 08/09/23 (Tirosint) Allergies Allergy/AdvReac Type Severity Reaction Status Date / Time levothyroxine Allergy Fatigued Verified 08/09/23 09:13 Review of Systems Status of ROS: Reports: 10 or more systems reviewed and unremarkable except as noted in History and below [facility] Medical History Atrial fibrillation ?I48.91 - Unspecified atrial fibrillation (ICD-10) 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 She is breathing easily. She looks uncomfortable. Head: Normocephalic, atraumatic. Eyes: Sclera clear. Pupils equal and reactive. ENT: Mucous membranes moist. Neck: Supple without adenopathy. Heart: Regular rate and rhythm without murmur. Lungs: Clear. No increased work of breathing, crackles or wheezes. Abdomen: Soft, nontender to palpation. Extremities: Well perfused, pulses intact. She does not have tenderness of the left shoulder joint specifically, but range of motion of the left shoulder is significantly limited because it is painful in her scapula. She does have some tenderness over the lower portion of the scapula and posterior ribs. Neurologic: Alert, conversant. Speech fluent, face symmetric. Moves all extremities equally. Skin: Warm, dry well perfused. Affect: Normal. Const: Vital Signs, click to edit/add: Vital Signs - 24 hr 11/04/24 21:52 Temperature 97.8 F Pulse Rate [Pulse Oximeter] 86 Respiratory Rate 18 Blood Pressure [Ri ght Upper Arm] 144/85 H Pulse Oximetry 99 Oxygen Delivery Me thod Room Air Course Course ED Course: I started with an x-ray of her left shoulder, by my review this showed no evidence of dislocation or fracture. Read as negative by Radiology. I had reasonably high suspicion for fracture either of the scapular perhaps the posterior ribs, so I did a CT scan of the chest without contrast. By my review there is a minimally displaced fracture through the tip of the left scapula. I did not see any rib fractures or pneumothorax. Final radiology read is reviewed. They note an aneurysmal thoracic aorta at 4.5 cm as well as and minimally displaced fracture of the distal left scapula. Presumably, [facility] is handling her vascular and valvular issues in the chest. With regard to the scapular fracture, I have discussed this diagnosis. Reviewed that this should heal although it takes time and in the meantime she will have pain. She does not want anything stronger for pain. Her family member who is with her was recommending a couple different her herbal medications, I did give her some Tylenol here as well as a couple doses of ibuprofen. Reviewed that ibuprofen is not a great medication at age 79 to be taking frequently but if she needs a dose or 2 I think that is okay. Otherwise, Tylenol as needed. Orthopedic follow-up next week for recheck. Return any time for significant worsening. Sling provided. Vital Signs Vital signs: Initial Vital Signs Temperature 97.8 F 11/04/24 21:52 Temperature Source Temporal Artery Scan 11/04/24 21:52 Pulse Rate 86 11/04/24 21:52 Respiratory Rate 18 11/04/24 21:52 Blood Pressure 144/85 H 11/04/24 21:52 Blood Pressure Mean 104 11/04/24 21:52 Blood Pressure Position Sitting 11/04/24 21:52 Pulse Oximetry 99 11/04/24 21:52 Oxygen Delivery Method Room Air 11/04/24 21:52 Vital Signs Temperature 97.8 F 11/04/24 21:52 Pulse Rate 86 11/04/24 21:52 Respiratory Rate 18 11/04/24 21:52 Blood Pressure 144/85 H 11/04/24 21:52 Pulse Oximetry 99 11/04/24 21:52 Oxygen Delivery Method Room Air 11/04/24 21:52 Temperature 97.8 F 11/04/24 21:52 Pulse Rate 86 11/04/24 21:52 Respiratory Rate 18 11/04/24 21:52 Blood Pressure 144/85 H 11/04/24 21:52 Pulse Oximetry 99 11/04/24 21:52 Oxygen Delivery Method Room Air 11/04/24 21:52 Medical Decision Making Imaging Data Left shoulder x-ray: Attestation: I have reviewed the pertinent imaging results. Radiologist's impression: [place] [address] Diagnostic Imaging Report Patient: Ariane Banks MR#: [id number] : 1945 Acct:[id number] Loc: ED Service Date: 11/04/[address]: Ordering Physician: Aneta Timmons M.D. Date of Service: 11/04/24 Procedure(s): XR shoulder LT min 2V Accession Number(s): [id number] cc: Aneta Timmons M.D.; Rody Petit D.O.~ For Patients: As a result of the Cures Act, medical imaging exams and procedure reports are released immediately into your electronic medical record. You may view this report before your referring provider. If you have questions, please contact your health care provider. Indication: Shoulder injury. Technique: Left shoulder 3 views. Comparison: None. Findings: Bones: No acute fracture or dislocation. Joint spaces: Unremarkable. Soft tissues: Aortic arch calcifications. Impression: No acute fracture or dislocation. Dictated by Miguel Jones MD @ 11/04/2024 10:30:46 PM (Electronically Signed) CT scan - chest: Attestation: I have reviewed the pertinent imaging results. Radiologist's impression: [address] [address] Diagnostic Imaging Report Patient: Ariane Banks MR#: [id number] : 1945 Acct:[id number] Loc: ED Service Date: 11/04/[address]: Ordering Physician: Aneta Timmons M.D. Date of Service: 11/04/24 Procedure(s): CT chest wo con Accession Number(s): [id number] cc: Aneta Timmons M.D.; Rody Petit D.O.~ For Patients: As a result of the Cures Act, medical imaging exams and procedure reports are released immediately into your electronic medical record. You may view this report before your referring provider. If you have questions, please contact your health care provider. INDICATION: Left scapular chest pain after fall TECHNIQUE: CT chest without i.v. contrast. Coronal and sagittal reformats were obtained. COMPARISON: None FINDINGS: The sensitivity and specificity of the exam are moderately limited by beam hardening artifacts from scanning with the arms by the patient`s side. Cardiovascular: The heart has an unremarkable appearance and size. The pulmonary arteries are unremarkable in appearance. Aneurysmal enlargement of the ascending aorta is noted measuring 4.5 cm. Moderate atherosclerotic calcifications are noted in the coronary arteries. Mediastinum: No mass or adenopathy seen. Lung: No pulmonary contusion, laceration or pneumothorax is seen. Pleura and pericardium: No sign of pleural effusion seen. No significant pericardial effusion is present. Chest wall and axilla: No mass or adenopathy seen. Bone: Mild chronic compression deformity seen along the inferior endplate of T6. There is a minimally displaced fracture along the inferior tip of the left scapula. Upper abdomen: There is a cyst present in the upper pole of the left kidney measuring 4.5 cm. IMPRESSIONS: 1. There is a minimally displaced fracture along the inferior tip of the left scapula. 2. Aneurysmal enlargement of the ascending aorta is noted measuring 4.5 cm. Dictated by Ethan Garza MD @ 11/04/2024 10:55:34 PM Please note that all CT scans at this facility use dose modulation, iterative reconstruction, and/or weight-based dosing when appropriate to reduce radiation dose to as low as reasonably achievable. Dictated by: Ethan Garza MD @ 11/04/2024 22:57:13 Discharge Plan Discharge Clinical Impression: Closed fracture of left scapula Patient Disposition: Home, Self-Care Condition: Stable Instructions: Scapular Fracture (ED) Additional Instructions: You can use ice on this area which may help with pain. I gave you Tylenol, and ibuprofen. Tylenol you can take 2 tablets 3 times daily as needed. Ibuprofen I would prefer that you did not take frequently but if you need an occasional dose that is okay. Please follow-up with orthopedics in the next week for recheck. Their phone number is [phone]. Return any time for severe uncontrolled pain or new symptoms such as difficulty breathing. Sling as needed. Prescriptions: No Action levothyroxine [Tirosint] 100 mcg capsule 100 mcg PO levothyroxine [Tirosint] 88 mcg capsule 88 mcg PO DAILY Follow Up/Referrals: Rody Petit DO [Primary Care Provider] - Stand Alone Forms: [employer] Info Instructions
== END 2024-11-04 23:33 | disposition home or self-care (01) ==
PROVIDERS: Emergency Provider Emergency Medicine; PCP Family Medicine
DX: S42.192A Fracture of other part of scapula, left shoulder, initial encounter for closed fracture (principal); W18.30XA Fall on same level, unspecified, initial encounter
CPT/HCPCS: 71250; 73030; 99284

== ENCOUNTER 2025-06-14 17:41 | Outpatient (CLI) | payer MEDICARE, BC, SELFPAY | END 2025-06-14 17:42 | disposition home or self-care (01) | LOC: NFLDUCREF 17:42 | PROVIDERS: PCP Family Medicine; Visit Provider Physician Assistant Surgical | DX: R10.30 Lower abdominal pain, unspecified (principal) | CPT/HCPCS: 87086 ==